=== PATIENT | female | born 1955 | race Caucasian/White ===

== ENCOUNTER 2020-10-03 09:11 | Outpatient (REF) | payer OTHER, SELFPAY ==
--- NOTE | 2020-10-03 | MM_ITS ---
EXAMINATION: MM SCREENING DIGITAL BREAST TOMOSYNTHESIS, BILATERAL CLINICAL INFORMATION: Screening. Asymptomatic. The lifetime risk of breast cancer based on the Tyrer-Cuzick Model is 4%. COMPARISON: Mammography: 09/28/2019, 05/05/2018, 03/17/2017 TECHNIQUE: Digital breast tomosynthesis is performed in both the craniocaudal and mediolateral oblique views along with computer-aided detection (CAD). Synthesized 2D images are generated from the tomosynthesis. Additional right MLO and left CC views are provided. FINDINGS: There are scattered areas of fibroglandular density (ACR BI-RADS breast composition Category b). Breast tissue composition borders on heterogeneously dense. Parenchymal pattern is similar to prior studies. There is no developing density or interval mass or architectural abnormality. No abnormal calcifications. No significant changes. MM/MM tomosynthesis screening BI IMPRESSION: No mammographic evidence of malignancy. ASSESSMENT: BI-RADS 1: Negative RECOMMENDATION: Routine annual mammography screening. This patient's information was entered into a reminder system with a target due date for their next mammogram.
== END 2020-10-03 09:12 | disposition home or self-care (01) ==
LOC: HO.MAMMO 09:11
PROVIDERS: PCP Student in an Organized Health Care Education/Training Program; Visit Provider Student in an Organized Health Care Education/Training Program
DX: Z12.31 Encounter for screening mammogram for malignant neoplasm of breast (principal)
CPT/HCPCS: 77063; 77067

== ENCOUNTER 2021-12-31 09:27 | Outpatient (REF) | payer OTHER, SELFPAY ==
--- NOTE | ~2021-12-31 | MM_ITS ---
EXAMINATION: MM SCREENING DIGITAL BREAST TOMOSYNTHESIS, BILATERAL CLINICAL INFORMATION: Screening. Asymptomatic. The lifetime risk of breast cancer based on the Tyrer-Cuzick Model is 5%. COMPARISON: Mammography: 10/03/2020, 09/28/2019, 05/05/2018. TECHNIQUE: Digital breast tomosynthesis is performed in both the craniocaudal and mediolateral oblique views along with computer-aided detection (CAD). Synthesized 2D images are generated from the tomosynthesis. FINDINGS: There are scattered areas of fibroglandular density (ACR BI-RADS breast composition Category b). There are no significant masses, abnormal calcifications, or other abnormalities. Parenchymal pattern is similar to prior studies. Breast tissue composition borders on heterogeneously dense. No developing density. Axilla and skin contours unremarkable. MM/MM tomosynthesis screening BI IMPRESSION: No mammographic evidence of malignancy. ASSESSMENT: BI-RADS 1: Negative RECOMMENDATION: Routine annual mammography screening. This patient's information was entered into a reminder system with a target due date for their next mammogram.
== END 2021-12-31 09:28 | disposition home or self-care (01) ==
LOC: HO.MAMMO 09:27
PROVIDERS: PCP Student in an Organized Health Care Education/Training Program; Visit Provider Student in an Organized Health Care Education/Training Program
DX: Z12.31 Encounter for screening mammogram for malignant neoplasm of breast (principal)
CPT/HCPCS: 77063; 77067

== ENCOUNTER 2023-01-06 09:40 | Outpatient (REF) | payer MEDICARE, SELFPAY ==
--- NOTE | ~2023-01-06 | MM_ITS ---
EXAMINATION: MM SCREENING DIGITAL BREAST TOMOSYNTHESIS, BILATERAL CLINICAL INFORMATION: Screening. Asymptomatic. The lifetime risk of breast cancer based on the Tyrer-Cuzick Model is 5%. COMPARISON: Mammography: 12/31/2021, 10/03/2020, 09/28/2019 TECHNIQUE: Digital breast tomosynthesis is performed in both the craniocaudal and mediolateral oblique views along with computer-aided detection (CAD). Synthesized 2D images are generated from the tomosynthesis. FINDINGS: There are scattered areas of fibroglandular density (ACR BI-RADS breast composition Category b). Breast tissue composition borders on heterogeneously dense. Fibronodular parenchymal pattern is similar to prior exams. There are no significant masses, abnormal calcifications, or other abnormalities. No architectural abnormality or developing density or significant change from prior studies. MM/MM tomosynthesis screening BI IMPRESSION: No mammographic evidence of malignancy. ASSESSMENT: BI-RADS 1: Negative RECOMMENDATION: Routine annual mammography screening. This patient's information was entered into a reminder system with a target due date for their next mammogram.
== END 2023-01-06 09:41 | disposition home or self-care (01) ==
LOC: HO.MAMMO 09:40
PROVIDERS: PCP Student in an Organized Health Care Education/Training Program; Visit Provider Student in an Organized Health Care Education/Training Program
DX: Z12.31 Encounter for screening mammogram for malignant neoplasm of breast (principal)
CPT/HCPCS: 77063; 77067

== ENCOUNTER → 2023-12-09 10:40 | Outpatient (BNVA) | payer MEDICARE, SELFPAY | PROVIDERS: PCP Student in an Organized Health Care Education/Training Program; Visit Provider Nurse Practitioner Family ==

== ENCOUNTER 2023-12-14 15:20 | Outpatient (REF) | payer MEDICARE, SELFPAY ==
[2023-12-14 16:17] LABS: MANUAL DIFF FLAG NO
[2023-12-14 16:35] LABS: Estimated Average Glucose 100 mg/dL; Hemoglobin A1c % 5.1 % (<6.0)
[2023-12-14 16:36] LABS: Basophils Absolute Auto 0.1 X10*3/uL (0.0-0.2); Basophils Percent Auto 0.5 % (0-2); Eosinophils Percent Auto 0.3 % (0-4); Hematocrit 39.9 % (37.0-47.0); Hemoglobin 13.5 g/dl (12.0-16.0); Imm Gran Abs Auto 0.04 X10*3/uL (0.00-0.03); Imm Gran Pct Auto 0.4 % (0.0-0.4); Lymphocytes Absolute Auto 1.8 X10*3/uL (1.2-4.9); Lymphocytes Percent Auto 19.3 % (20-40); Mean Corpuscular HGB Conc 33.8 g/dl (31.0-35.0); Mean Corpuscular Hemoglobin 33.3 pg (27.0-33.0); Mean Corpuscular Volume 98.5 fL (80.0-98.0); Mean Platelet Volume 9.6 fL (9.4-12.3); Monocytes Absolute Auto 0.7 X10*3/uL (0.1-1.2); Monocytes Percent Auto 7.7 % (2-11); Neutrophils Absolute Auto 6.6 x10*3/uL (2.0-8.3); Neutrophils Percent Auto 71.8 % (45-73); Platelet Count 255 X10*3/uL (160-400); Red Blood Count 4.05 X10*6/uL (4.20-5.50); Red Cell Distribution Width 12.6 % (11.0-16.0); White Blood Count 9.2 X10*3/uL (4.8-10.8)
[2023-12-14 16:41] LABS: INTERNATIONAL NORM RATIO 0.9 (0.9-1.1); Prothrombin Time 10.7 SEC (11.1-13.3)
[2023-12-14 16:49] LABS: Parathyroid Hormone Intact 27.2 pg/mL (8.7-77.1)
[2023-12-14 17:59] LABS: Alanine Aminotransferase 21 U/L (0-31); Albumin Level 4.7 g/dL (3.5-5.0); Alkaline Phosphatase 77 U/L (39-117); Anion Gap 16 (12-20); Aspartate Amino Transferase 34 U/L (5-31); Bilirubin Total 0.6 mg/dL (0.0-1.0); Blood Urea Nitrogen 18 mg/dL (9-16); Calcium 10.2 mg/dL (8.4-10.2); Carbon Dioxide 26 mmol/L (22-29); Chloride 103 mmol/L (96-108); Cholesterol 174 mg/dL (<200); Estimated Glomerular Filt Rate 60; Glucose Random 96 mg/dL (60-115); HDL Cholesterol 83 mg/dL (>40); Iron 88 mcg/dL (30-160); LDL Cholesterol Calculated 73 mg/dL (<100); Percent Iron Saturation 27 % (15-50); Potassium 4.3 mmol/L (3.3-5.1); Sodium 141 mmol/L (135-145); Total Iron Binding Capacity 330 mcg/dL (228-428); Total Protein 8.1 g/dL (6.5-8.0); Triglycerides 90 mg/dL (<150); Unsaturated Iron Binding 242 ug/dL
[2023-12-14 18:22] LABS: Ferritin 129 ng/mL (10-250); TSH reflex Free T4 2.71 uIU/mL (0.32-4.0); Vitamin D 25-OH Total 64.8 ng/mL (>30)
[2023-12-14 18:26] LABS: Folate > 20.0 ng/mL (> or = 4.0); Vitamin B12 > 2000 pg/mL (200-900)
[2023-12-14 18:34] LABS: Reflex LDLD? No
[2023-12-15 18:04] LABS: Thyroglobulin Antibodies <1 IU/mL (< or = 1)
== END 2023-12-14 15:21 | disposition home or self-care (01) ==
LOC: HO.HHCL 15:20
PROVIDERS: Visit Provider Family Medicine
DX: D64.9 Anemia, unspecified (principal); E03.9 Hypothyroidism, unspecified; E78.1 Pure hyperglyceridemia; I10 Essential (primary) hypertension; R74.01 Elevation of levels of liver transaminase levels; E55.9 Vitamin D deficiency, unspecified; E07.89 Other specified disorders of thyroid
CPT/HCPCS: 36415; 80053; 80061; 82306; 82607; 82728; 82746; 83036; 83540; 83970; 84443; 85025; 85610; 86800

== ENCOUNTER 2024-01-08 09:09 | Outpatient (REF) | payer MEDICARE, SELFPAY ==
--- NOTE | ~2024-01-08 | MM_ITS ---
EXAMINATION: BONE DENSITOMETRY CLINICAL INDICATION: Age-related osteoporosis without current pathological fracture. Post menopausal. COMPARISON: This is the patient's baseline examination. TECHNIQUE: Using a [employer] DXA System (software version: 13.1) manufactured by [employer], dual-energy x-ray absorptiometry was performed of the lumbar spine and left hip. The images are of good technical quality. Summary results are attached. FINDINGS: AP SPINE L1-L3 (excluding L4): The data of L1-L4 has been changed to exclude the L4 vertebral body, because degenerative sclerosis at this level may cause overestimation of lumbar spine density. BMD 1.195 g/cm2, Z-score 2.0, T-score 0.2, normal. LEFT FEMUR, NECK: BMD 0.899 g/cm2, Z-score 0.7, T-score -1.0, normal. LEFT FEMUR, TOTAL: BMD 0.906 g/cm2, Z-score 0.6, T-score -0.8, normal. IDENTIFIED RISK FACTORS: Alcohol (3 or more units per day). Height loss. Secondary osteoporosis (early menopause). HISTORY OF FRACTURE: None listed. MEDICATIONS: Calcium supplement and/or multivitamin. MM/XR DEXA axial skeleton IMPRESSION: 1. DIAGNOSIS: Normal bone density based on the lowest T-score value of -1.0 in the femoral neck applying World Health Organization criteria. 2. 10-YEAR FRACTURE RISK PREDICTION, FRAX: According to the guidelines, FRAX calculation should only be performed on patients in the osteopenia bone density category.?Therefore, FRAX was not performed on this patient.? 3. Treatment Recommendations: NOF guidelines recommend consideration for treatment in postmenopausal women and men age 50 and older presenting with the following: -A hip or vertebral (clinical or morphometric) fracture. -T-score less than or equal to -2.5 at the femoral neck or spine after appropriate evaluation to exclude secondary causes. -Low bone mass at the hip or spine and a 10-year fracture probability by FRAX of greater than or equal to 3% for hip fracture or greater than or equal to 20% for major osteoporotic fracture based on the [place] adapted WHO algorithm. 4. Other Recommendations: All treatment decisions require clinical judgment and consideration of individual patient factors, including patient preferences, comorbidities, previous drug use, risk factors not captured in the FRAX model (e.g. frailty, falls, vitamin D deficiency, increased bone turnover, interval significant decline in bone density) and possible under or overestimation of fracture risk by FRAX. FUTURE SCAN RECOMMENDATION: People with diagnosed cases of osteoporosis or at high risk for fracture should have regular bone mineral density tests. For patients eligible for Medicare, routine testing is allowed once every 2 years. The testing frequency can be increased to one year for patients who have rapidly progressing disease, those who are receiving or discontinuing medical therapy to restore bone mass, or have additional risk factors.
--- NOTE | ~2024-01-08 | MM_ITS ---
EXAMINATION: MM SCREENING DIGITAL BREAST TOMOSYNTHESIS, BILATERAL CLINICAL INFORMATION: Screening. Asymptomatic. COMPARISON: Mammography: 01/06/2023, 12/31/2021, 10/03/2020, 09/28/2019 TECHNIQUE: Digital breast tomosynthesis is performed in both the craniocaudal and mediolateral oblique views along with computer-aided detection (CAD). Synthesized 2D images are generated from the tomosynthesis. FINDINGS: The breasts are heterogeneously dense, which may obscure small masses (ACR BI-RADS breast composition Category c). Breast parenchyma is borderline category B. There are no suspicious masses, suspicious grouped calcifications, or areas of architectural distortion in either breast. The parenchymal pattern is stable from prior exams. No skin or axillary abnormalities. MM/MM tomosynthesis screening BI IMPRESSION: No mammographic evidence of malignancy. ASSESSMENT: BI-RADS BI-RADS 1 - Negative RECOMMENDATION: Routine annual mammography screening. 1 year F/U This examination should not preclude the clinical evaluation of a suspicious palpable abnormality. This patient's information was entered into a reminder system with a target due date for their next mammogram.
== END 2024-01-08 09:10 | disposition home or self-care (01) ==
LOC: HO.MAMMO 09:09
PROVIDERS: PCP Family Medicine; Visit Provider Student in an Organized Health Care Education/Training Program
DX: Z12.31 Encounter for screening mammogram for malignant neoplasm of breast (principal); Z13.820 Encounter for screening for osteoporosis; Z78.0 Asymptomatic menopausal state
CPT/HCPCS: 77063; 77067; 77080

== ENCOUNTER → 2024-01-08 09:45 | Outpatient (BNV) | payer MEDICARE, SELFPAY | PROVIDERS: PCP Family Medicine; Visit Provider Radiology Diagnostic Radiology | DX: Z12.31 Encounter for screening mammogram for malignant neoplasm of breast (principal) | CPT/HCPCS: 77063; 77067 ==

== ENCOUNTER 2024-03-01 07:53 | Day surgery (SDC) | payer MEDICARE, SELFPAY ==
--- NOTE | 2024-02-29 11:41 | HO.ANESPROP2 ---
Documented by User: Anastacia Qiu NP 02/29/24 11:44 HPI - Anesthesia Eval Consult details Narrative: 68yo F for Colonoscopy PMFSH Active Problems Active Problems: All Active Problems Transaminitis (Acute) Past Medical History Medical History Transaminitis Hypothyroidism (acquired) Hypercholesteremia HTN (hypertension) Family History Family History Father Mouth cancer Hypertension Mother Hypertension Surgical History Surgical History Hx of colonoscopy (~2017) Hx of cholecystectomy (~2016) Social History Social History Household Members: Spouse Housing: House Alcohol intake: current Alcohol intake frequency: a few times a week Alcohol type: beer Patient Tobacco Use Status: Former Tobacco user Substance Use Type: Marijuana Substance Use Frequency: Occasionally Are you DNR?: No Advance Directives: No Advance Directives Information Provided: Yes Nutrition Risks: No Nutritional Risk Meds Allergies Allergy/AdvReac Type Severity Reaction Status Date / Time celecoxib [From CELEBREX] Allergy Intermediate HIVES Verified 03/01/24 08:46 shellfish derived Allergy Intermediate HIVES Verified 03/01/24 08:46 [SHELLFISH DERIVED] Sulfa (Sulfonamide Allergy Intermediate HIVES Verified 03/01/24 08:46 Antibiotics) [SULFA (SULFONAMIDE ANTIBIOTICS)] shellfish reaction at age 16 Allergy Unknown hives Uncoded 03/01/24 08:46 Home Medications ?Medication ?Instructions ?Recorded ?Confirmed ?Last Taken ?Type atorvastatin 40 mg tablet 40 mg PO BEDTIME 12/09/23 03/01/24 Unknown History levothyroxine 25 mcg tablet 25 mcg PO QAM 12/09/23 03/01/24 03/01/24 History lisinopril 10 mg tablet 10 mg PO DAILY 12/09/23 03/01/24 Unknown History thiamine HCl (vitamin B1) 100 mg 100 mg PO DAILY 12/09/23 03/01/24 Unknown History tablet Exam Pertinent Lab Results Pertinent Lab Results: Laboratory Tests 12/14/23 15:23 WBC 9.2 Hgb 13.5 Hct 39.9 Plt Count 255 Sodium 141 Potassium 4.3 Chloride 103 Carbon Dioxide 26 BUN 18 H Creatinine 0.94 Assessment and Plan Assessment Anesthesia Assessment: Chart Reviewed Documented by User: Libra Truong MD 03/01/24 09:10 PMFSH Past Medical History Medical History Transaminitis Hypothyroidism (acquired) Hypercholesteremia HTN (hypertension) Family History Family History Father Mouth cancer Hypertension Mother Hypertension Surgical History Surgical History Hx of colonoscopy (~2016) Hx of cholecystectomy (~2015) History of Problems with Anesthesia: No Social History Social History Household Members: Spouse Housing: House Alcohol intake: current Alcohol intake frequency: a few times a week Alcohol type: beer Patient Tobacco Use Status: Former Tobacco user Substance Use Type: Marijuana Substance Use Frequency: Occasionally Are you DNR?: No Advance Directives: No Advance Directives Information Provided: Yes Nutrition Risks: No Nutritional Risk Meds Allergies Allergy/AdvReac Type Severity Reaction Status Date / Time celecoxib [From CELEBREX] Allergy Intermediate HIVES Verified 03/01/24 08:46 shellfish derived Allergy Intermediate HIVES Verified 03/01/24 08:46 [SHELLFISH DERIVED] Sulfa (Sulfonamide Allergy Intermediate HIVES Verified 03/01/24 08:46 Antibiotics) [SULFA (SULFONAMIDE ANTIBIOTICS)] shellfish reaction at age 16 Allergy Unknown hives Uncoded 03/01/24 08:46 Home Medications ?Medication ?Instructions ?Recorded ?Confirmed ?Last Taken ?Type atorvastatin 40 mg tablet 40 mg PO BEDTIME 12/09/23 03/01/24 Unknown History levothyroxine 25 mcg tablet 25 mcg PO QAM 12/09/23 03/01/24 03/01/24 History lisinopril 10 mg tablet 10 mg PO DAILY 12/09/23 03/01/24 Unknown History thiamine HCl (vitamin B1) 100 mg 100 mg PO DAILY 12/09/23 03/01/24 Unknown History tablet Exam Airway Mallampati Class: II TM Dist: >3cm Neck ROM: Full Loose/Missing/Broken Teeth: No Heart: RRR Lungs: CTA Assessment and Plan Assessment Anesthesia Assessment: Anesthesia Plan Discussed Final Anesthetic Review History of Problems with Anesthesia: No NPO: Yes ASA Class: II Final Preanesthetic Review: Meds/Allgs Chart Reviewed, Consent Obtained/Reviewed and Anes Risks/Benef Reviewed Patient Risk: Low Anesthetic Plan Anesthetic Plan: MAC: Disposition: Standard PACU
--- NOTE | 2024-03-01 08:10 | P.HPSUR_ITS ---
Pre-Procedural Eval Section A - 24 Hr Update-Section A only Date of Service: 03/01/24 Section B - Complete if H&P > 30 days Chief Complaint: Hx of polyps Details of Present Illness: Transaminitis Hypothyroidism (acquired) Hypercholesteremia HTN (hypertension) Surgical History (Updated 12/09/23 @ 11:11 by Dana Avina, [facility]) Hx of colonoscopy (~2017) Hx of cholecystectomy (~2015) Allergies: Allergies Allergy/AdvReac Type Severity Reaction Status Date / Time celecoxib [From CELEBREX] Allergy Intermediate HIVES Unverified 12/09/23 10:45 shellfish derived Allergy Intermediate HIVES Unverified 12/09/23 10:45 [SHELLFISH DERIVED] Sulfa (Sulfonamide Allergy Intermediate HIVES Unverified 12/09/23 10:45 Antibiotics) [SULFA (SULFONAMIDE ANTIBIOTICS)] shellfish reaction at age 16 Allergy Unknown hives Uncoded 12/09/23 10:45 Plan I have reviewed the history and physical and performed a pertinent physical examination on my patient. No changes have occurred unless specified. Time Spent With Patient Time: Total time managing care of this patient today ____ minutes.
[2024-03-01 08:26] VITALS: BMI 21.6
[2024-03-01] MEDS: Lactated Ringers 1,000 ML 100 ML IVCONT (08:30)
[2024-03-01 08:44] VITALS: BP 142/70; PULSE 70; RESP 18; TEMP 36.6; O2SAT 100
--- NOTE | 2024-03-01 10:00 | P.OPN-COLO_ITS ---
Colonoscopy Operative Note Operative Note Date of Service: 03/01/24 Narrative: Procedure: Colonoscopy Indication: Personal history of polyps Endoscopist: Tonia Cole MD Anesthesia Provider: Dr Nathalie Truong Anesthesia type: MAC Instrument: Olympus [id number]-[id number] Consent: Indication, risks vs benefits, and alternatives were discussed with the patient who gave written informed consent to proceed. EKG, pulse, pulse oximetry and blood pressure were monitored throughout the procedure. Please see anesthesia flowsheet. Procedure: The patient was brought to the procedure room and placed in the left lateral decubitus position. IV medications were administered by the anesthesia provider in attendance. A digital rectal exam was performed which was normal. A distal attachment cap was affixed to the tip of the colonoscope which was then inserted through the anus and advanced through the colon to the cecum at 80 cm,and terminal ileum. Appendiceal orifice and ileocecal valve were identified. Mucosa was carefully examined under high definition white light as the instrument was slowly withdrawn in a retrograde panoramic fashion. Retroflexion was performed in rectum. The procedure was not difficult. There were no immediate obvious complications. The quality of the prep was BBPS: 2+3+3 = adequate Withdrawal time 9 minutes. Limitations: No limitations. Findings: Mucosa: Normal to cecum and terminal ileum. Protruding lesions: * Medium internal hemorrhoids without stigmata of recent bleeding. Excavated lesions: * Moderate diverticulosis of left sided colon. Impression: 1. Normal colon and terminal ileum mucosa 2. Diverticulosis 3. Internal hemorrhoids Recommendations: - Repeat colonoscopy in 10 years for asymptomatic colorectal cancer screening
[2024-03-01 10:02] VITALS: BP 98/55; PULSE 71; RESP 18; TEMP 36.1; O2SAT 100
[2024-03-01 10:13] VITALS: BP 127/70; PULSE 66; RESP 16; TEMP 36.1; O2SAT 97
== END 2024-03-01 11:08 | disposition home or self-care (01) ==
PROVIDERS: PCP Family Medicine; Visit Provider Internal Medicine
PROC: 0DJD8ZZ Inspection of Lower Intestinal Tract, Via Natural or Artificial Opening Endoscopic (ICD-10-PCS; CPT 45378; principal; 2024-03-01 09:40)
DX: Z12.11 Encounter for screening for malignant neoplasm of colon (principal); K57.30 Diverticulosis of large intestine without perforation or abscess without bleeding; K64.8 Other hemorrhoids; Z86.010 Personal history of colon polyps; I10 Essential (primary) hypertension; Z88.2 Allergy status to sulfonamides; Z88.8 Allergy status to other drugs, medicaments and biological substances
CPT/HCPCS: G0105; J2704

== ENCOUNTER → 2024-03-01 07:53 | Outpatient (BNV) | payer MEDICARE, SELFPAY | PROVIDERS: PCP Family Medicine; Visit Provider Internal Medicine | DX: Z12.11 Encounter for screening for malignant neoplasm of colon (principal); Z86.010 Personal history of colon polyps; K64.8 Other hemorrhoids; K57.30 Diverticulosis of large intestine without perforation or abscess without bleeding | CPT/HCPCS: G0105 ==

== ENCOUNTER 2024-03-16 11:04 | Outpatient (AMB) | payer MEDICARE, SELFPAY ==
[2024-03-16 11:05] VITALS: BP 151/76; PULSE 70; BMI 22.2
--- NOTE | 2024-03-16 11:05 | MHC.OFFVIS ---
Vital Signs 03/16/24 11:05 Height 5 ft 2 in Weight 121 lb 4.068 oz BMI 22.2 BP 151/76 H Blood Pressure Location Lt brachial Position Sitting Pulse 70 Intake Visit Reasons: S/P [place]: Dr Cole Intake Note: Nataliya presents in the office as a follow up colonoscopy. CC: No concerns since her colonoscopy. Legal Examiner Required: No Allergies celecoxib [From CELEBREX] Allergy (Intermediate, Verified 03/16/24 11:18) HIVES shellfish derived [SHELLFISH DERIVED] Allergy (Intermediate, Verified 03/16/24 11:18) HIVES Sulfa (Sulfonamide Antibiotics) [SULFA (SULFONAMIDE ANTIBIOTICS)] Allergy (Intermediate, Verified 03/16/24 11:18) HIVES shellfish reaction at age 16 Allergy (Unknown, Uncoded 03/16/24 11:18) hives HPI HPI S/P [place]: Dr Cole: Details: TODAY'S VISIT: Screen for colon cancer Transaminitis Plan Patient denies any GI, cardiac or respiratory symptoms.? Denies any issues with anesthesia in the past.? Denies any history of sleep apnea.? No history infectious diseases in the past or present.? Not on any anticoagulation therapy.? No family history of colon cancer.? Patient denies melena, hematochezia, unintentional weight loss or ribbon like stools.? Discussed at length the pre-procedure,? prep, diet & medications as well as what to expect prior, during and after the procedure.?? Stressed the importance of good bowel prep. ?Recommended the use of Vaseline or Calmoseptine OTC & baby wipes with bowel movements to promote comfort.? ?Patient verbalizes understanding and agrees to plan of care.? She was given the opportunity to ask questions and all questions answered.? We will see her after the procedure.? Orders Orders Comprehensive Met. Panel Today K21.9 Complete Blood Count no Diff Today K21.9 Medications New bisacodyl (Dulcolax (bisacodyl)) take 4 tabs at noon the day before your colonoscopy 20 mg (4 x 5 mg) PO ONCE 1 day 4 tabs 0RF Z12.11 polyethylene glycol 3350 (Miralax) As directed by gastroenterology department at [facility] 238 grams PO ONCE 238 grams 0RF Z12.11 COLONOSCOPY: Findings: Mucosa: Normal to cecum and terminal ileum. Protruding lesions: Medium internal hemorrhoids without stigmata of recent bleeding. Excavated lesions: Moderate diverticulosis of left sided colon. Impression: 1. Normal colon and terminal ileum mucosa 2. Diverticulosis 3. Internal hemorrhoids Recommendations: - Repeat colonoscopy in 10 years for asymptomatic colorectal cancer screening TODAY'S VISIT Patient is here today for follow-up and to discuss colonoscopy results. Patient denies any ill effects from the prep, anesthesia or procedure itself. Patient states that she has been feeling well. Denies melena, hematochezia. Denies any dyspepsia, dysphagia or odynophagia. Patient denies any GI concerning symptoms. Upon review patient's labs her liver enzymes have improved Laboratory Tests 12/14/23 15:23 AST 34 H ALT 21 PFSH Medical History (Updated 03/16/24 @ 12:08 by Dana Avina [facility]) Diverticulosis Transaminitis Hypothyroidism (acquired) Hypercholesteremia HTN (hypertension) Surgical History Hx of colonoscopy (~2017) Hx of cholecystectomy (~2016) Family History Father Mouth cancer Hypertension Mother Hypertension Social History Household Members: Spouse Housing: House Alcohol intake: current Alcohol intake frequency: a few times a week Alcohol type: beer Patient Tobacco Use Status: Former Tobacco user Substance Use Type: Marijuana Physical Exam Vital Signs: Last Vital Signs Pulse 70 03/16/24 11:05 BP 151/76 H 03/16/24 11:05 BMI result Body Mass Index 22.2 Assessment & Plan Assessment & Plan (1) Transaminitis: Code(s): R74.01 - Elevation of levels of liver transaminase levels Category: Medical (2) Status post colonoscopy: Code(s): Z98.890 - Other specified postprocedural states (3) Diverticulosis: Code(s): K57.90 - Diverticulosis of intestine, part unspecified, without perforation or abscess without bleeding Category: Medical Plan Colonoscopy in 10 years, sooner if clinically necessary. Patient will get her abdominal ultrasound with elastography. Will repeat liver enzymes. Patient will return for follow-up in 6 months, sooner on as needed basis. She is agreeable to this plan and verbalizes understanding of instructions. She was given the opportunity to ask questions and all questions answered. Thank you for allowing me to participate in her care Orders: Orders US abdomen humphrey w elastography Today R74.01 - Elevation of levels of liver transaminase levels Liver Panel Today R74.01 - Elevation of levels of liver transaminase levels Coding Level of Care Code Est Pt Level 3 (40635) Diagnoses Transaminitis R74.01 Status post colonoscopy Z98.890 Diverticulosis K57.90 Time Spent (min) 25 Comment 15 minutes spent with patient and additional 10 minutes spent reviewing her records
== END 2024-03-16 11:39 | disposition home or self-care (01) ==
PROVIDERS: PCP Student in an Organized Health Care Education/Training Program; Visit Provider Nurse Practitioner Family
DX: R74.01 Elevation of levels of liver transaminase levels (principal); Z98.890 Other specified postprocedural states; K57.90 Diverticulosis of intestine, part unspecified, without perforation or abscess without bleeding
CPT/HCPCS: 99213

== ENCOUNTER → 2024-03-16 11:04 | Outpatient (BNVA) | payer MEDICARE, SELFPAY | PROVIDERS: PCP Student in an Organized Health Care Education/Training Program; Visit Provider Nurse Practitioner Family | DX: K57.90 Diverticulosis of intestine, part unspecified, without perforation or abscess without bleeding (principal); R74.01 Elevation of levels of liver transaminase levels; Z71.2 Person consulting for explanation of examination or test findings | CPT/HCPCS: 99212 ==

== ENCOUNTER 2024-06-17 09:54 | Outpatient (REF) | payer MEDICARE, SELFPAY ==
--- NOTE | ~2024-06-17 | US_ITS ---
EXAMINATION: US ABDOMEN LIMITED WITH LIVER ELASTOGRAPHY CLINICAL INFORMATION: Elevated LFTs. COMPARISON: CT abdomen and pelvis 06/28/2019, MRI abdomen 11/12/2015, abdominal ultrasound 10/22/2015 TECHNIQUE: Real-time imaging of the abdominal viscera. Noninvasive ultrasound liver fibrosis assessment is performed using Hailey ElastPQ point quantification shear wave elastography (pSWE) with a 5 MHz transducer. Multiple elastography samples are obtained. FINDINGS: PANCREAS: The visualized pancreatic head and body are normal in appearance. The remainder of the pancreas is obscured from visualization by the overlying bowel gas. LIVER: The liver demonstrates normal size and contour but with increased echogenicity. No focal lesion or intrahepatic biliary duct dilatation. The right lobe measures 12.3 cm in length. The left lobe measures 9.6 cm in length. Shear wave elastography provides a median stiffness of 1.5 m/s (reference: normal median stiffness is 0.81 - 1.22 m/s). The IQR/median stiffness to assess sampling precision is 0.11 (reference: optimal IQR/median stiffness is under 0.3). GALLBLADDER: Status post cholecystectomy. COMMON BILE DUCT: Common bile duct is dilated measuring 9 mm in diameter, which can be normal after cholecystectomy. RIGHT KIDNEY: . No hydronephrosis. No renal calculi or focal parenchymal lesions. The kidney measures 8.9 cm in maximum dimension. FREE FLUID: None. US/US abdomen humphrey w elastography IMPRESSION: 1. The liver is normal in size with increased echogenicity. Common bile duct dilated at 0.9 cm. 2. Liver elastography: In the absence of other known clinical signs, measurements rule out compensated advanced chronic liver disease. If there are known clinical signs, further testing may be needed for confirmation. REFERENCE: Society of Radiologists in Ultrasound Liver Stiffness Thresholds (2020): LIVER STIFFNESS THRESHOLDS: *Liver Stiffness equal or less than 1.3 m/s: High probability of being normal. *Liver Stiffness less than 1.7 m/s: In the absence of other known clinical signs, rules out compensated advanced chronic liver disease. *Liver Stiffness 1.7-2.1 m/s: Suggestive of compensated advanced chronic liver disease but need further test for confirmation. *Liver Stiffness over 2.1 m/s: Rules in compensated advanced chronic liver disease. *Liver Stiffness over 2.4 m/s: Suggestive of clinically significant portal hypertension. QUALITY OF DATA SET: *IQR/Median value equal or less than 0.15 implies a quality data set. *IQR/Median value over 0.15 implies a poor quality data set. SIGNIFICANT CHANGE FROM PRIOR EXAM: Significant change if liver stiffness measurement is 10% or greater from prior exam. OTHER CONSIDERATIONS: The stage of liver fibrosis may be overestimated in the setting of acute hepatitis, liver inflammation, elevated liver function tests, hepatic vascular congestion, obstructive cholestasis, non-fasting state, and infiltrative diseases such as amyloidosis and lymphoma. In some patients with NAFLD, the liver stiffness thresholds for compensated advanced chronic liver disease may be lower. In causes other than viral hepatitis and NAFLD, liver stiffness thresholds are not well established. Electronically signed by: Isaac Bonner MD 06/20/2024 09:54 PM EDT
== END 2024-06-17 09:55 | disposition home or self-care (01) ==
LOC: HO.US 09:54
PROVIDERS: Visit Provider Nurse Practitioner Family
DX: R74.01 Elevation of levels of liver transaminase levels (principal)
CPT/HCPCS: 76705; 76981

== ENCOUNTER 2024-09-12 10:58 | Outpatient (AMB) | payer MEDICARE, SELFPAY ==
--- NOTE | 2024-09-12 11:01 | MHC.OFFVIS ---
Vital Signs 09/12/24 11:03 Height 5 ft 2 in Weight 123 lb 7.342 oz BMI 22.6 BP 134/72 Blood Pressure Location Rt brachial Position Sitting Pulse 76 Pulse Source Pulse Oximeter Pulse Oximetry (%) 98 Oxygen Delivery Method Room Air Intake Visit Reasons: 6 month follow up Intake Note: Relevant Flags or Indicators ? Requires Sail Repair Person? Altagracia An presents in office today for a scheduled 6 mos FUV. CC; Pt had imaging done since last visit. No meds ordered. Pt has active, outstanding labs. ? Relevant GI Sx as reported per pt? None ? Hx of any recent surgeries? None Sail Repair Person Required: No Allergies celecoxib [From CELEBREX] Allergy (Intermediate, Verified 09/12/24 11:03) HIVES shellfish derived [SHELLFISH DERIVED] Allergy (Intermediate, Verified 09/12/24 11:03) HIVES Sulfa (Sulfonamide Antibiotics) [SULFA (SULFONAMIDE ANTIBIOTICS)] Allergy (Intermediate, Verified 09/12/24 11:03) HIVES shellfish reaction at age 16 Allergy (Unknown, Uncoded 03/16/24 11:18) hives HPI HPI 6 month follow up: Details: LAST VISIT: Transaminitis Status post colonoscopy Diverticulosis Plan Colonoscopy in 10 years, sooner if clinically necessary. Patient will get her abdominal ultrasound with elastography. Will repeat liver enzymes. Patient will return for follow-up in 6 months, sooner on as needed basis. She is agreeable to this plan and verbalizes understanding of instructions. She was given the opportunity to ask questions and all questions answered. ? Thank you for allowing me to participate in her care Orders Orders US abdomen humphrey w elastography Today R74.01 Liver Panel Today R74.01 TODAY'S VISIT Patient is here today for follow-up and to discuss lab and ultrasound results. Patient did not had blood work done, ultrasound liver elastography showed increased echogenicity with shear way elastography measurement 1.5, slightly above normal and rules out compensated advanced chronic liver disease. Patient reports that she drinks alcohol only occasionally usually beer. No hard liquor. Patient was given prescription for Tylenol, however she is not taking it on a regular basis. Patient reports that she has been doing well, denies any GI concerning symptoms. [facility] Medical History Diverticulosis Transaminitis Hypothyroidism (acquired) Hypercholesteremia HTN (hypertension) Surgical History Hx of colonoscopy (~2017) Hx of cholecystectomy (~2015) Family History Father Mouth cancer Hypertension Mother Hypertension Social History Household Members: Spouse Housing: House Alcohol intake: current Alcohol intake frequency: a few times a week Alcohol type: beer Patient Tobacco Use Status: Former Tobacco user Substance Use Type: Marijuana Review of Systems Const Denies weight gain and Denies weight loss ENT Reports no additional complaints, Denies dysphagia and Denies odynophagia Card Reports no additional complaints Resp Reports no additional complaints GI Denies abdominal pain, Denies belching, Denies melena, Denies bloating, Denies change in bowel habits, Denies dysphagia, Denies excessive flatus, Denies dyspepsia, Denies heartburn, Denies diarrhea, Denies loose stools, Denies nausea, Denies odynophagia and Denies vomiting Musc Reports no additional complaints Neuro Reports no additional complaints Psych Reports no additional complaints Endo Reports no additional complaints Physical Exam Const General: healthy appearing, no acute distress and well developed Nutritional Appearance: well nourished Orientation/consciousness: patient oriented x3 Resp Effort & Inspection: normal respiratory effort, able to speak in complete sentences, no tracheal deviation and symmetric chest movement Auscultation: clear to auscultation bilaterally Cardio Rate: regular rate GI Inspection: Yes normal to inspection and No distended Palpation (GI): Soft to palpation, not firm, nontender and No hepatosplenomegaly present Auscultation: normal bowel sounds General: Yes no CVA tenderness Back/Spine/Pelvis Back: no CVA tenderness Skin General skin exam: elasticity normal, turgor normal and dry skin Neuro General: patient oriented x3 Psych Appearance: grossly normal Mental Status: mental status grossly normal Results Reviewed Results Reviewed: ABDOMINAL ULTRASOUND WITH LIVER ELASTOGRAPHY FINDINGS: PANCREAS: The visualized pancreatic head and body are normal in appearance. The remainder of the pancreas is obscured from visualization by the overlying bowel gas. LIVER: The liver demonstrates normal size and contour but with increased echogenicity. No focal lesion or intrahepatic biliary duct dilatation. The right lobe measures 12.3 cm in length. The left lobe measures 9.6 cm in length. Shear wave elastography provides a median stiffness of 1.5 m/s (reference: normal median stiffness is 0.81 - 1.22 m/s). The IQR/median stiffness to assess sampling precision is 0.11 (reference: optimal IQR/median stiffness is under 0.3). GALLBLADDER: Status post cholecystectomy. COMMON BILE DUCT: Common bile duct is dilated measuring 9 mm in diameter, which can be normal after cholecystectomy. RIGHT KIDNEY: . No hydronephrosis. No renal calculi or focal parenchymal lesions. The kidney measures 8.9 cm in maximum dimension. FREE FLUID: None. US/US abdomen humphrey w elastography IMPRESSION: 1. The liver is normal in size with increased echogenicity. Common bile duct dilated at 0.9 cm. 2. Liver elastography: In the absence of other known clinical signs, measurements rule out compensated advanced chronic liver disease. If there are known clinical signs, further testing may be needed for confirmation. Assessment & Plan Assessment & Plan (1) Diverticulosis: Code(s): K57.90 - Diverticulosis of intestine, part unspecified, without perforation or abscess without bleeding Category: Medical (2) Transaminitis: Code(s): R74.01 - Elevation of levels of liver transaminase levels Category: Medical (3) Non-alcoholic fatty liver disease: Code(s): K76.0 - Fatty (change of) liver, not elsewhere classified Plan Patient was encouraged to get her blood work done today. Ultrasound results discussed with patient. Patient will continue low-fat, low-salt low carb and high-protein diet. Will call our office if she will have any GI symptoms. Patient is agreeable to this plan and verbalizes understanding of instructions. She was given the opportunity to ask questions and all questions answered. Thank you for allowing me to participate in her care Coding Level of Care Code Est Pt Level 3 (98179) Diagnoses Diverticulosis K57.90 Transaminitis R74.01 Non-alcoholic fatty liver disease K76.0 Time Spent (min) 25 Comment 15 minutes spent with patient and additional 10 minutes spent reviewing her records
[2024-09-12 11:03] VITALS: BP 134/72; PULSE 76; O2SAT 98; BMI 22.6
== END 2024-09-12 11:19 | disposition home or self-care (01) ==
PROVIDERS: PCP Student in an Organized Health Care Education/Training Program; Visit Provider Nurse Practitioner Family
DX: K57.90 Diverticulosis of intestine, part unspecified, without perforation or abscess without bleeding (principal); R74.01 Elevation of levels of liver transaminase levels; K76.0 Fatty (change of) liver, not elsewhere classified
CPT/HCPCS: 99213

== ENCOUNTER → 2024-09-12 10:58 | Outpatient (BNVA) | payer MEDICARE, SELFPAY | PROVIDERS: PCP Student in an Organized Health Care Education/Training Program; Visit Provider Nurse Practitioner Family | DX: K57.90 Diverticulosis of intestine, part unspecified, without perforation or abscess without bleeding (principal); K76.0 Fatty (change of) liver, not elsewhere classified; R74.01 Elevation of levels of liver transaminase levels | CPT/HCPCS: 99212 ==

== ENCOUNTER 2024-12-19 14:02 | Outpatient (REF) | payer MEDICARE, SELFPAY ==
[2024-12-19 16:19] LABS: MANUAL DIFF FLAG NO
[2024-12-19 16:31] LABS: Basophils Percent Auto 0.5 % (0-2); Eosinophils Percent Auto 0.4 % (0-4); Hematocrit 38.4 % (37.0-47.0); Imm Gran Abs Auto 0.03 X10*3/uL (0.00-0.03); Imm Gran Pct Auto 0.4 % (0.0-0.4); Lymphocytes Absolute Auto 1.6 X10*3/uL (1.2-4.9); Lymphocytes Percent Auto 19.7 % (20-40); Mean Corpuscular HGB Conc 33.9 g/dl (31.0-35.0); Mean Corpuscular Hemoglobin 33.5 pg (27.0-33.0); Mean Platelet Volume 9.7 fL (9.4-12.3); Monocytes Absolute Auto 0.7 X10*3/uL (0.1-1.2); Monocytes Percent Auto 8.2 % (2-11); Neutrophils Absolute Auto 5.8 x10*3/uL (2.0-8.3); Neutrophils Percent Auto 70.8 % (45-73); Platelet Count 229 X10*3/uL (160-400); Red Blood Count 3.88 X10*6/uL (4.20-5.50); Red Cell Distribution Width 12.4 % (11.0-16.0); White Blood Count 8.2 X10*3/uL (4.8-10.8)
[2024-12-19 16:36] LABS: Estimated Average Glucose 105 mg/dL; Hemoglobin A1C 118.6896 umol/L; Hemoglobin A1c % 5.3 % (<6.0); Total Hemoglobin (HGBA1C) 3404.9939 umol/L
[2024-12-19 16:39] LABS: Alanine Aminotransferase 30 U/L (0-31); Albumin Level 4.4 g/dL (3.5-5.0); Alkaline Phosphatase 85 U/L (39-117); Anion Gap 12 (12-20); Aspartate Amino Transferase 48 U/L (5-31); Bilirubin Direct 0.2 mg/dL (0.0-0.5); Bilirubin Total 0.6 mg/dL (0.0-1.0); Blood Urea Nitrogen 12 mg/dL (9-16); Calcium 9.6 mg/dL (8.4-10.2); Carbon Dioxide 27 mmol/L (22-29); Chloride 107 mmol/L (96-108); Estimated Glomerular Filt Rate > 60; Glucose Random 104 mg/dL (60-115); Lipase 24 U/L (8-78); Potassium 4.1 mmol/L (3.3-5.1); Sodium 142 mmol/L (135-145); Total Protein 7.8 g/dL (6.5-8.0)
[2024-12-19 16:44] LABS: Cholesterol 157 mg/dL (<200); HDL Cholesterol 87 mg/dL (>40); LDL Cholesterol Calculated 57 mg/dL (<100); Triglycerides 69 mg/dL (<150)
--- OUTSIDE RECORDS SUMMARY | 2024-12-19 16:44 | XMS_ITS | Encounter Summary ---
Author Organization [employer] Address [address] [facility] [address] [place] [address] Care Team Providers Care Crew Team Member Name Role Phone Paulina Briggs MD Primary Care Provider [phone] Encounter Details Date Type Department Care Team (Latest Contact Info) Description 12/12/2024 Travel Social History Tobacco Use Types Packs/Day Years Used Date Smoking Tobacco: Former Cigarettes Depression Answer Date Recorded Patient Health Questionnaire-9 Score 0 12/14/2023 Patient Health Questionnaire-9 Score 0 12/14/2023 Last PHQ-9: Questionnaire Data Not on file 0 12/14/2023 Housing Stability Answer Date Recorded What is your housing situation today? I have yenifer metzger 12/03/[address] you li ve. Do you have problems with any of the following? None of the above 12/03/2023 Food Insecurity Answer Date Recorded Within the past 12 months, y ou worried that your food would run out before you got money to buy more: Never True 12/03/2023 Within the past 12 months,th e food you bought just didn't last and you didn't have enough money to get more: Never True Transportation Answer Date Recorded In the past 12 months, has l ack of transportation kept you from medical appts, meetings, work or from getting things needed for daily living? No 12/03/2023 Utilities Answer Date Recorded In the past 12 months, has t he electric, gas, oil or water company threatened to shut off services in your home? No 12/03/2023 Depression Answer Date Recorded Patient Health Questionnaire-2 Score 0 12/14/2023 Comments Unknown Sex and Gender Information Value Date Recorded Sex Assigned at Female 08/18/2022 10:27 AM EDT Legal Sex Female 10:27 AM EDT Gender Identity Choose not to disclose 10:27 AM EDT Sexual Orientation Choose not to disclose 2021 10:27 AM EDT documented as of this encounter Plan of Treatment Upcoming Encounters Date Type Department Care Team (Late st Contact Info) Description 01/09/2025 11:30 AM EDT Clinical Support [facility] [address] [place] [address] documented as of this encounter Visit Diagnoses Not on filedocumented in this encounter Additional Health Concerns Assessment Noted Time PHQ-9 Depression Total Score: 0 12/14/19 3:26 PM EST documented as of this encounter Care Teams Crew Team Member Relationship Specialty Start Date End Date Paulina Briggs MD [address] [place] [address] PCP - General Family Medicine 12/28/23 documented as of this encounter
--- OUTSIDE RECORDS SUMMARY | 2024-12-19 16:44 | XMS_ITS | Encounter Summary ---
Author Organization [employer] Address [address] [facility] [address] [place] [address] Care Team Providers Care Labor Economist Name Role Phone Paulina Briggs MD Primary Care Provider [phone] Reason for Visit * Reason Onset Date Comments chart prep 12/14/2024 Encounter Details Date Type Department Care Team ([facility] st Contact Info) Description 12/14/[address] [facility] [address] [place] [address] Sloane Pérez MA chart prep Social History Tobacco Use Types Packs/Day Years [...] AM EDT documented as of this encounter Miscellaneous Notes * Telephone Encounter - Sloane Pérez MA - 12/14/2024 10:09 AM EST ..chart Prep Labs: not applicable Images: not applicable Vaccines due: Covid Due and Flu Due Referrals: Completed Screenings: Not Applicable Overdue care gaps: Sbirt, SDOH, PHQ-9, and hasmukh-7 documented in this encounter Plan of Treatment Upcoming Encounters Date Type Department Care Team (Late st Contact Info) Description 01/09/2025 11:30 AM EDT Clinical [address] [facility] [address] [place] [address] documented as of this encounter Visit Diagnoses Not on filedocumented in this encounter Additional Health Concerns Assessment Noted Time PHQ-9 Depression Total Score: 0 12/14/19 24 3:26 PM EST documented as of this encounter Care Teams Labor Economist Relationship Specialty Start Date End Date Paulina Briggs MD [address] [place] [address] PCP - General Family Medicine 12/28/23 documented as of this encounter
--- OUTSIDE RECORDS SUMMARY | 2024-12-19 16:44 | XMS_ITS | Clinical Summary ---
Author Organization [email or web address] Address [address] [place] [address] 7[address] [place] [address] Care Team Providers Care Software Security Consultant Name Role Phone Paulina Briggs MD Primary Care Provider [phone] Allergies Active Allergy Reactions Criticality Noted Date Comments Celecoxib Hives Medium 10/29/2022 Sulfa Antibiotics Hives High 10/29/2022 Medications acetaminophen (Arthritis Pain Relief) 650 MG ER tablet TAKE ONE TABLET EVERY 8 HOURS NEEDED .swallow WHOLE with WATER. DO NOT BREAK, CRUSH, DISSOLVE OR CHEW 90 tablet 5 4 Active thiamine (Vitamin B-1) 100 MG tablet TAKE 1 TABLET BY MOUTH EVERY DAY 90 tablet 1 4 Active levothyroxine (Synthroid, Levoxyl) 25 MCG tabletIndication s:Hypothyroidism , unspecified type TAKE 1 TABLET BY MOUTH EVERY MORNING 90 tablet 1 4 Active atorvastatin (Lipitor) 40 MG tablet TAKE 1 TABLET BY MOUTH EVERY DAY AT BEDTIME 90 tablet 1 4 Active lisinopril 10 MG tablet TAKE ONE TABLET DAILY 90 tablet 1 4 Active Active Problems Problem Noted Date Diagnosed Date Transaminitis 12/14/2023 Assessment & Plan (12/19/2024 1:52 PM EST): - recheck lab - patient rinks 2-3 cans of beer daily; continue reassessing amount and encourage sensible intake - consider US evaluation Assessment & Plan (12/28/2023 9:55 AM EDT): - recheck lab - patient rinks 2-3 cans of beer daily; continue reassessing amount and encourage sensible intake - consider US evaluation Hypothyroidism 04/05/2015 Assessment & Plan (12/19/2024 1:51 PM EST): - current replacement: levothyroxine 50 mcg daily - last TSH > 1 year ago - check lab - check thyroid peroxidase antibody Assessment & Plan (12/28/2023 9:49 AM EDT): - current replacement: levothyroxine 50 mcg daily - last TSH > 1 year ago - check lab - check thyroid peroxidase antibody Pure hyperglyceridemia 04/05/2015 Assessment & Plan (12/19/2024 1:51 PM EST): - current medication: atorvastatin 40 mg at bedtime - last lipid profile > 1 year ago - recheck lab - continue working on lifestyle modifications Assessment & Plan (12/28/2023 9:53 AM EDT): - current medication: atorvastatin 40 mg at bedtime - last lipid profile > 1 year ago - recheck lab - continue working on lifestyle modifications Vitamin D deficiency 04/05/2015 Assessment & Plan (12/19/2024 1:51 PM EST): - check vitamin D level Assessment & Plan (12/28/2023 9:50 AM EDT): - check vitamin D level Essential hypertension 04/05/2015 Assessment & Plan (12/19/2024 1:51 PM EST): -Goal BP < 150/90 per JNC-8 and < 130/80 per ACC/AHA guideline (Treatment threshold >= 140/90) -BP within acceptable range today -Continue working on lifestyle modifications -Recommended self-monitoring BP. -Continue current medications: lisinopril 10 mg daily -Follow up in 3-6 mo, sooner if any problem arises Assessment & Plan (12/28/2023 9:48 AM EDT): -Goal BP < 150/90 per JNC-8 and < 130/80 per ACC/AHA guideline (Treatment threshold >= 140/90) -BP within acceptable range today -Continue working on lifestyle modifications -Recommended self-monitoring BP. -Continue current medications: lisinopril 10 mg daily -Follow up in 3-6 mo, sooner if any problem arises Resolved Problems Problem Noted Date Diagnosed Date Resolved Date COVID 10/29/2022 12/14/2023 Assessment & Plan (10/29/2022 4:24 PM EST): Symptoms started 2 days ago, tested positive for covid yesterday, denied shortness of breath. Offered Paxlovid Risk vs benefits were discussed, told to maintain well hydrated, in Case of worsening symptoms told to visit er. Congestion of nasal sinus 10/29/2022 Chills 10/29/2022 11/26/2022 Encounters Date Type Department Care Team Description 12/19/2024 1:15 PM EST Office Visit [address] [address] Paulina Briggs MD Essential hypertension (Primary Dx); Vitamin D deficiency; Hypothyroidism, unspecified type; Transaminitis; Pure hyperglyceridemia; Encounter for immunization; Flatulence; Diarrhea, unspecified type; Screening for diabetes mellitus 12/19/2024 Orders Only GENERIC EXTERNAL DATA DEPARTMENT Provider, Generic External Data 12/19/2024 Travel 12/14/[address] [address] Sloane Pérez MA chart prep 12/12/2024 Travel 12/06/2024 Patient Outreach [address] [address] Paulina Briggs MD Pre-visit Planning (Pre-visit planning - LVM ) from Last 3 Months Immunizations Name Administration Dates Next Due Influenza injectable quadriv alent IIV4 with preservative 08/26/2016,07/06/2015 Influenza injectable quadrivalent preservative f ree 12/14/2023,07/08/2019 Pfizer Covid-19 Vaccine 12+ 12/19/2024, Pneumococcal Conjugate PCV 20 12/14/2023 Tdap 02/08/2018 Social History Tobacco Use Types Packs/Day Years Used Date Smoking Tobacco: Former Cigarettes Passive Smoke Exposure: Never Tobacco Cessation:Counseling Given: Not Answered Depression Answer Date Recorded Patient Health Questionnaire-9 Score 0 12/19/2024 Patient Health Questionnaire-9 Score 0 12/19/2024 Last PHQ-9: Questionnaire Data Not on file 0 12/19/2024 Housing Stability Answer Date Recorded What is your housing situation today? I have yenifer metzger 12/19/[address] you li ve. Do you have problems with any of the following? None of the above 12/19/2024 Food Insecurity Answer Date Recorded Within the past 12 months, y ou worried that your food would run out before you got money to buy more: Never True 12/19/2024 Within the past 12 months,th e food you bought just didn't last and you didn't have enough money to get more: Never True 12/2024 Transportation Answer Date Recorded In the past 12 months, has l ack of transportation kept you from medical appts, meetings, work or from getting things needed for daily living? No 12/19/2024 Utilities Answer Date Recorded In the past 12 months, has t he electric, gas, oil or water company threatened to shut off services in your home? No 12/19/2024 Depression Answer Date Recorded Patient Health Questionnaire-2 Score 0 12/19/2024 Internet Access Answer Date Recorded Internet Access Q1 Yes 12/19/2024 Internet Access Q2 Not on file 12/19/2024 Comments Unknown Sex and Gender Information Value Date Recorded Sex Assigned at Female 08/18/2022 10:27 AM EDT Legal Sex Female 10:27 AM EDT Gender Identity Choose not to disclose 10:27 AM EDT Sexual Orientation Choose not to disclose 2021 10:27 AM EDT Last Filed Vital Signs Vital Sign Reading Time Taken Comments Blood Pressure 155/84 12/19/2024 1:35 PM EST Pulse 84 12/19/2024 1:15 PM EST Temperature 36.4 ??C (97.5 ??F) 12/19/2024 1:15 PM ES T Respiratory Rate 15 12/19/2024 1:15 PM EST Oxygen Saturation 98% 12/19/2024 1:15 PM EST Inhaled Oxygen Concentration - - Weight 58.1 kg (128 lb) 12/19/2024 1:15 PM EST Height 156.3 cm (5' 1.53 ) 12/19/2024 1:15 PM ES T Body Mass Index 23.77 12/19/2024 1:15 PM EST Plan of Treatment Upcoming Encounters Date Type Department Care Team (Late st Contact Info) Description 01/09/2025 11:30 AM EDT Clinical Support [address] [address] Health Maintenance Due Date Last Done Comments CT Colonography 1955 FIT DNA/Cologuard 1955 FIT 1955 FOBT 1955 Sigmoidoscopy 1955 Hepatitis C Screening 1975 Zoster Vaccines (1 of 2) 2007 Influenza Vaccine (#1) 2024 , 07/08/2019, 08/26/2016, Additional history exists Mammogram 01/07/2025 01/08/2024, 12/18, 12/31/2021, Additional history exists Tobacco Screening 02/03/2025 02/04/2024 Alcohol/Substance Use Screening 12/19/2025 12/19/2024 Depression Screening 12/19/2025 12/19/2024, 12/20/19 25 SDOH Screening 12/19/2025 12/19/2024 DTaP/Tdap/Td Vaccines (2 - Td or Tdap) 02/09/2028 02/08/2018 Lipid Panel 12/14/2028 12/14/2023, 11/19, 12/03/2021 RSV Patients and Patients Aged 60 years or older (1 - 1-dose 75+ series) 2032 Colonoscopy 03/01/2034 03/01/2024, 10/08/2017 Colorectal Cancer Screening 03/01/2034 Cervical Cancer Screening Discontinued HPV/Cotest Discontinued 12/09/2016 Pneumococcal Vaccine: 50+ Years Completed 12/14/2023 COVID-19 Vaccine Completed 12/19/2024, 03/2023, 08/06/2022, Additional history exists HIB Vaccines Aged Out No longer eligi ble based on patient's age to complete this topic HPV Vaccines Aged Out No longer eligi ble based on patient's age to complete this topic Hepatitis A Vaccines Aged Out No long er eligible based on patient's age to complete this topic Hepatitis B Vaccines Aged Out No long er eligible based on patient's age to complete this topic IPV Vaccines Aged Out No longer eligi ble based on patient's age to complete this topic Meningococcal Vaccine Aged Out No aide bina eligible based on patient's age to complete this topic Pap Smear Discontinued RSV under 20 months Aged Out No longe r eligible based on patient's age to complete this topic Rotavirus Vaccines Aged Out No longer eligible based on patient's age to complete this topic Procedures Procedure Name Priority Date/Time Associated Diagnosis Comments HEPATIC FUNCTION PANEL Routine 12/19/2024 2:06 PM EST CBC WITH AUTO DIFFERENTIAL Routine 12/19/2024 2:06 PM EST Transaminitis LIPASE Routine 12/19/2024 2:06 PM EST Transaminitis COMPREHENSIVE METABOLIC PANEL Routine 12/19/2024 2:06 PM EST Essential hypertension HEMOGLOBIN A1C Routine 12/19/2024 2:06 PM EST Screening for diabetes mellitus HM COLONOSCOPY Routine 03/01/2024 9:07 AM EDT BI MAMMOGRAM SCREENING TOMOSYNTHESIS BILATERAL Routine 01/08/2024 9:30 AM EDT LIPID PANEL WITH REFLEX TO DIRECT LDL Routine 12/14/2023 3:23 PM EST Pure hyperglyceridemia ZZZ HISTORICAL HPV MRNA E6/E7 Routine 12/09/2016 10:00 AM EST from Last 3 Months or Most Recently Relevant to Health Maintenance Results * (ABNORMAL) CBC auto differential (12/19/2024 2:06 PM EST) White Blood Count 8.2 4.8 - 10.8 X10*3/uL [facility] Red Blood Count 3.88(L) 4.20 - 5.50 X10*6/uL [facility] Hemoglobin 13.0 12.0 - 16.0 g/dl [facility] Hematocrit 38.4 37.0 - 47.0 % [facility] Mean Corpuscular Volume 99.0(H) 80.0 - 98.0 fL [facility] Mean Corpuscular Hemoglobin 33.5(H) 27.0 - 33.0 pg [facility] Mean Corpuscular HGB Conc 33.9 31.0 - 35.0 g/dl [facility] Red Cell Distribution Width 12.4 11.0 - 16.0 % [facility] Platelet Count 229 160 - 400 X10*3/uL [facility] Mean Platelet Volume 9.7 9.4 - 12.3 fL [facility] Neutrophils Percent Auto 70.8 45 - 73 % [facility] Imm Gran Pct Auto 0.4 0.0 - 0.4 % [facility] Lymphocytes Percent Auto 19.7(L) 20 - 40 % [facility] Monocytes Percent Auto 8.2 2 - 11 % [facility] Eosinophils Percent Auto 0.4 0 - 4 % [facility] Basophils Percent Auto 0.5 0 - 2 % [facility] NRBC Pct Auto 0.0 0.0 - 0.2 /100WBC [facility] Neutrophils Absolute Auto 5.8 2.0 - 8.3 x10*3/uL [facility] Imm Gran Abs Auto 0.03 0.00 - 0.03 X10*3/uL [facility] Lymphocytes Absolute Auto 1.6 1.2 - 4.9 X10*3/uL [facility] Monocytes Absolute Auto 0.7 0.1 - 1.2 X10*3/uL [facility] Eosinophils Absolute Auto 0.0 0.0 - 0.4 X10*3/uL [facility] Basophils Absolute Auto 0.0 0.0 - 0.2 X10*3/uL [facility] NRBC Abs Auto 0.000 0.0 - 0.012 X10*3/uL [facility] Blood Venous blood specimen / Unknown 12/19/2024 2:06 PM EST 12/19/2024 4:15 PM EST us Paulina Briggs MD LAB BLOOD ORDERABLES Final Resul t Performing Organization Address City/[facility]/ZIP Co de Phone Number [facility] [address] [place] [phone] * Lipase (12/19/2024 2:06 PM EST) Lipase 24 8 - 78 U/L [facility] Blood Venous blood specimen / Unknown 12/19/2024 2:06 PM EST 12/19/2024 4:15 PM EST us Paulina Briggs MD LAB BLOOD ORDERABLES Final Resul t Performing Organization Address [facility] Co de Phone Number [facility] [address] [place] [phone] * Hemoglobin A1c (12/19/2024 2:06 PM EST) Hemoglobin A1c 5.3 <6.0 % [facility] Comment:Hemoglobin A1C Refer ence Range Adults: 4.8 - 6.0 % Non diabetic: < 6.0 % Goal: < 7.0 %Additional Action Suggested: > 8.0 %Note: Hemoglobin A1c results are invalid for patients with abnormal amounts of HbF. Blood transfusions may impact the HbA1c concentration in the patient sample. Estimated Average Glucose 105 mg/dL [facility] Comment:eAG = Estimated ave rage glucose which is %A1C expressed asaverage glucose, using the formula of the Y3W-LnsnrowIcewwgm Glucose study (ADAG), Diabetes Care, Vol.31,#8,May. 2007 Blood Venous blood specimen / Unknown 12/19/2024 2:06 PM EST 12/19/2024 4:15 PM EST us Paulina Briggs MD LAB BLOOD ORDERABLES Final Resul t Performing Organization Address City/[facility] Co de Phone Number [facility] [address] [place] [address] [phone] * Hepatic Function Panel (12/19/2024 2:06 PM EST) Bilirubin, Direct 0.2 0.0 - 0.5 mg/dL [facility] 12/19/2024 2:06 PM EST 12/19/2024 4:15 PM EST us Generic External Data Provider LAB BLOOD ORDERAB LES Final Result [facility] [address] [place] [phone] [phone] * (ABNORMAL) Comprehensive Metabolic Panel (12/19/2024 2:06 PM EST) Pathologist [facility] Sodium 142 135 - 145 mmol/L [facility] Potassium 4.1 3.3 - 5.1 mmol/L [facility] Chloride 107 96 - 108 mmol/L [facility] Carbon Dioxide 27 22 - 29 mmol/L [facility] Anion Gap 12 12 - 20 [facility] Urea Nitrogen (BUN) 12 9 - 16 mg/dL [facility] Creatinine, Serum 0.82 0.5 - 1.4 mg/dL [facility] Estimated Glomerular Filt Rate >60 [facility] Comment:Chronic Kidney Disea se: Estimated GFR < 60 mL/min/1.79u6Obkwyd Kidney Disease: Estimated GFR < 15 mL/min/1.73m2 Glucose 104 60 - 115 mg/dL [facility] Calcium 9.6 8.4 - 10.2 mg/dL [facility] Bilirubin, Total 0.6 0.0 - 1.0 mg/dL [facility] Aspartate Amino Transferase 48(H) 5 - 31 U/L [facility] Alanine Aminotransferase 30 0 - 31 U/L [facility] Total Protein 7.8 6.5 - 8.0 g/dL [facility] Albumin Level 4.4 3.5 - 5.0 g/dL [facility] Alkaline Phosphatase 85 39 - 117 U/L [facility] Blood Venous blood specimen / Unknown 12/19/2024 2:06 PM EST 12/19/2024 4:15 PM EST Paulina Briggs MD LAB BLOOD ORDERABLES Final Resul t [facility] [address] [place] [phone] * Hm Colonoscopy (03/01/2024 9:07 AM EDT) us Historical Provider HEALTH MAINTENANCE Final Result * BI Mammogram Screening Tomosynthesis Bilateral (01/08/2024 9:30 AM EDT) Anatomical Region Laterality Modality Breast Bilateral Mammography 01/08/2024 9:30 AM EDT Narrative 01/26/2024 10:34 AM EDT ? [facility] [place] ? [address] ?[place] [address] ? Mammography Report ? Signed ? Patient: Nataliya Timmons ?MR#: [id number] ?? [id number] ? : 1955 ?Acct:[id number] ? Age/Sex: 68 / F ?ADM Date: //24 ? Loc: HO.MAMMO ? Attending Dr: Cintia Chambers MD ? Ordering Physician: Cintia Chambers MD ?Results: 1Negati ?? ve ? Date of Service: 01/08/24 ?Follow Up: 1 Year From Orig ?? inal Mammogram ? Procedure(s): MM tomosynthesis screening BI ?? Accession Number(s): [id number] ? cc: Cintia Chambers MD; Paulina Briggs MD ? EXAMINATION: ?? MM SCREENING DIGITAL BREAST TOMOSYNTHESIS, BILATERAL ? CLINICAL INFORMATION: ? Screening. Asymptomatic. ? COMPARISON: ?? Mammography: 01/06/2023, 12/31/2021, 10/03/2020, 09/28/2019 ? TECHNIQUE: ?? Digital breast tomosynthesis is performed in both the craniocaudal and ?? mediolateral oblique views along with computer-aided detection (CAD). ?? Synthesized 2D images are generated from the tomosynthesis. ? FINDINGS: ?? The breasts are heterogeneously dense, which may obscure small masses ?? (ACR BI-RADS breast composition Category c). ? Breast parenchyma is borderline category B. ??There are no suspicious ?? masses, suspicious grouped calcifications, or areas of architectural ?? distortion in either breast. The parenchymal pattern is stable from ?? prior exams. No skin or axillary abnormalities. ? MM/MM tomosynthesis screening BI ?? IMPRESSION: ?? No mammographic evidence of malignancy. ? ASSESSMENT: ? BI-RADS BI-RADS 1 - Negative ? RECOMMENDATION: ?? Routine annual mammography screening. ? 1 year F/U ? This examination should not preclude the clinical evaluation of a ?? suspicious palpable abnormality. ? This patient's information was entered into a reminder system with a ?? target due date for their next mammogram. ? Dictated By: ?David Guevara MD ? Signed By: ?<Electronically signed by David Guevara MD in OV> ?01/26/24 1030 ? DD/ 9 ? TD/TT: ? Certified Court/Medical Interpreter: ? Procedure Note Donotuseinterpreter, Image - 01/26/2024 [facility] [address] [place] [address] Mammography Report Signed Patient: Noe TimmonsnMR#: [id number] : 7Acct:[id number] Age/Sex: 68 / FADM Date: 01/08/24 Loc: HO.MAMMO Attending Dr: Cintia Chambers MD Ordering Physician: Cintia Chambers MDResults: 1Negati ve Date of Service: 01/08/24Follow Up: 1 Year From Orig ina Mammogram Procedure(s): MM tomosynthesis screening BI Accession Number(s): [id number] cc: Cintia Chambers MD; Paulina Briggs MD EXAMINATION: MM SCREENING DIGITAL BREAST TOMOSYNTHESIS, BILATERAL CLINICAL INFORMATION: Screening. Asymptomatic. COMPARISON: Mammography: 01/06/2023, 12/31/2021, 10/03/2020, 09/28/2019 TECHNIQUE: Digital breast tomosynthesis is performed in both the craniocaudal and mediolateral oblique views along with computer-aided detection (CAD). Synthesized 2D images are generated from the tomosynthesis. FINDINGS: The breasts are heterogeneously dense, which may obscure small masses (ACR BI-RADS breast composition Category c). Breast parenchyma is borderline category B. There are no suspicious masses, suspicious grouped calcifications, or areas of architectural distortion in either breast. The parenchymal pattern is stable from prior exams. No skin or axillary abnormalities. MM/MM tomosynthesis screening BI IMPRESSION: No mammographic evidence of malignancy. ASSESSMENT: BI-RADS BI-RADS 1 - Negative RECOMMENDATION: Routine annual mammography screening. 1 year F/U This examination should not preclude the clinical evaluation of a suspicious palpable abnormality. This patient's information was entered into a reminder system with a target due date for their next mammogram. Dictated By: David Guevara MD Signed By: <Electronically signed by David Guevara MD in OV> 01/26/24 1030 DD/ 0930 TD/TT: Certified Court/Medical Interpreter: us Cintia Chambers MD IMG BI PROCEDURES Final Result * Lipid Panel with Reflex to Direct LDL (12/14/2023 3:23 PM EST) Triglycerides 90 <150 mg/dL [facility] Comment:Desirable Triglyceri de: less than 150 mg/dLBorderline High Triglyceride 150-199 mg/dLHigh Triglyceride: 200-499 mg/dLVery High Triglyceride: greater than or equal to 5OO mg/dL Cholesterol 174 <200 mg/dL [facility] Comment:Desirable Cholestero l: less than 200 mg/dLBorderline High Cholesterol: 200-239 mg/dLHigh Cholesterol: greater than 239 mg/dL LDL Cholesterol Calculated 73 <100 mg/dL [facility] Comment:Desirable LDL: less than 100 mg/dLNear Optimal/Above Optimal LDL: 110- 129 mg/dLBorderline High LDL: 130-159 mg/dLHigh LDL: 160-189 mg/dLVery High LDL: greater than or equal to 190 mg/dL HDL Cholesterol 83 >40 mg/dL [facility] Comment:Desirable HDL: great er than 40 mg/dL Note: This HDL assay may give artificially low results in patients with liver disease. Blood 12/14/2023 3:23 PM EST 12/14/2023 5:19 PM EST us Paulina Briggs MD LAB BLOOD ORDERABLES Final Resul t [facility] [address] [place] [phone] * HPV mRNA E6/E7 (12/09/2016 10:00 AM EST) HPV mRNA E6/E7 Not Detected NOT DETECTED [facility] Comment: This test was performed using the APTIMA(R) HPV Assay ([employer] This assay detects E6/E7 viral messenger RNA (mRNA) from 14 high-risk HPV types (16,18,31,33,35,39,45,51, 52,56,58,59,66,68). For additional information please refer to: http://education.EGEN.Traiana/faq/PMH317u3 (This link is being provided for informational/ educational purposes only.) Test Performed by [employer] [facility], [address] [place] [phone] Van Linton M.D., Ph.D., Director of Laboratories , ANH [id number] Please note: ??Effective 06/30/2016, HPV testing will be performed using [employer]'s APTIMA test which targets mRNA. Detecting mRNA instead of DNA, as in older methods, offers significant improvements in specificity. 12/09/2016 10:0 0 AM EST us Maryuri Johns CNM HISTORICAL/NON ORDERABLE LABS Final Result [facility] [address] from Last 3 Months or Most Recently Relevant to Health Maintenance Insurance [place] [address] [address] [place] [phone] [facility] * Guarantor: Rupinder Timmons Account Type Relation to Patient Date of Phone Billing Address Personal/Family Self [address] [place] Care Teams Software Security Consultant Relationship Specialty Start Date End Date Paulina Briggs MD [address] [place] [phone] PCP - General Family Medicine 12/28/23
--- OUTSIDE RECORDS SUMMARY | 2024-12-19 16:44 | XMS_ITS | Encounter Summary ---
Author Organization [employer] Address [address] [facility] [address] [place] [address] Care Team Providers Care Fruit Harvest Worker Name Role Phone Paulina Briggs MD Primary Care Provider [phone] Encounter Details Date Type Department Care Team (Latest Contact Info) Description 12/19/2024 Travel Social History Tobacco Use Types Packs/Day Years Used Date Smoking Tobacco: Former Cigarettes Passive Smoke Exposure: Never Depression Answer Date Recorded Patient Health Questionnaire-9 [...] Description 01/09/2025 11:30 AM EDT Clinical Support [facility] [address] [place] [address] documented as of this encounter Visit Diagnoses Not on filedocumented in this encounter Additional Health Concerns Assessment Noted Time PHQ-9 Depression Total Score: 0 12/20/19 25 2:05 PM EST documented as of this encounter Care Teams Fruit Harvest Worker Relationship Specialty Start Date End Date Paulina Briggs MD [address] [place] [address] PCP - General Family Medicine 12/28/23 documented as of this encounter
--- OUTSIDE RECORDS SUMMARY | 2024-12-19 16:44 | XMS_ITS | Encounter Summary ---
Author Organization [employer] Address [address] [place] [address] [place] [address] Care Team Providers Care Textile Colorist Formulator Name Role Phone Paulina Briggs MD Primary Care Provider [phone] Reason for Visit * Reason Comments Pre-visit Planning Pre-visit planning - LVM Encounter Details Date Type Department Care Team ([facility] st Contact Info) Description 12/06/2024 Patient Outreach [facility] MED[facility] [address] [place] [address] Paulina Briggs MD [address] [place] [address] Pre-visit Planning (Pre-visit planning - LVM ) Social History Tobacco Use Types Packs/Day Years [...] AM EDT documented as of this encounter Progress Notes * [place] - 12/06/2024 11:13 AM EST JUAN CARLOS Kitchen placed outbound call to patient to complete pre-visit planning. No answer at this time. Patient name and were not confirmed. CC left voicemail requesting return call. Direct contact information provided. documented in this encounter Plan of Treatment Upcoming Encounters Date Type Department Care Team (Late st Contact Info) Description 01/09/2025 11:30 AM EDT Clinical Support [facility] [address] [place] [address] documented as of this encounter Visit Diagnoses Not on filedocumented in this encounter Additional Health Concerns Assessment Noted Time PHQ-9 Depression Total Score: 0 12/14/19 3:26 PM EST documented as of this encounter Care Teams Textile Colorist Formulator Relationship Specialty Start Date End Date Paulina Briggs MD [address] [place] [address] PCP - General Family Medicine 12/28/23 documented as of this encounter
--- OUTSIDE RECORDS SUMMARY | 2024-12-19 16:44 | XMS_ITS | Encounter Summary ---
Author Organization [employer] Address [address] [place] [address] 7 [place] [address] Care Team Providers Care Peripheral Vascular Tech Name Role Phone Cintia Chambers MD Primary Care Provider [phone] Paulina Briggs MD Primary Care Provider [phone] Reason for Visit * Reason Onset Date Comments Results 12/03/2022 Encounter Details Date Type Department Care Team ([facility] Contact Info) Description 12/03/2022 Telephone [facility] MED & PEDS [address] [place] [address] Cintia Chambers MD [address] [place] [address] Results Social History Tobacco Use Types Packs/Day Years Used Date Smoking Tobacco: Never Assessed Comments Unknown Sex and Gender Information Value Date Recorded Sex Assigned at Female 08/18/2022 10:27 AM EDT Legal Sex Female 10:27 AM EDT Gender Identity Choose not to disclose 10:27 AM EDT Sexual Orientation Choose not to disclose 2021 10:27 AM EDT COVID-19 Exposure Response Date Recorded In the last 10 days, have yo u been in contact with someone who was confirmed or suspected to have Coronavirus/COVID-19? No / Unsure 11/19/2022 10:38 AM EST documented as of this encounter Miscellaneous Notes * Telephone Encounter - Cintia Chambers MD - 12/04/2022 10:41 AM EST Lubricants are over the counter * Telephone Encounter - Mindy Mcallister RN - 12/04/2022 10:00 AM EST TC placed to pt at [phone] in regards to lab results. Pt informed of recent lab results and verbalized understanding with no questions at this time. Pt requesting a vaginal lubricant for vaginal dryness. Informed pt RN would forward to PCP. Pt withno other concerns at this time. Pt to F/U PRN. * Telephone Encounter - Albina Link - 12/03/2022 1:04 PM EST Tc from pt requesting to speak about her results . documented in this encounter Plan of Treatment Upcoming Encounters Date Type Department Care Team (Late st Contact Info) Description 01/09/2025 11:30 AM EDT Clinical Support [facility] MEDICINE [address] [place] [address] documented as of this encounter Visit Diagnoses Not on filedocumented in this encounter Care Teams Peripheral Vascular Tech Relationship Specialty Start Date End Date Cintia Chambers MD [address] [place] [address] PCP - General Family Medicine 12/26/20 12/27/23 Paulina Briggs MD [address] [place] [address] PCP - General Family Medicine 12/28/23 documented as of this encounter
--- OUTSIDE RECORDS SUMMARY | 2024-12-19 16:44 | XMS_ITS | Encounter Summary ---
Author Organization [employer] Address [address] [facility] 7t [place] [address] Care Team Providers Care Patent Solicitor Name Role Phone Paulina Briggs MD Primary Care Provider [phone] Encounter Details Date Type Department Care Team ([facility] st Contact Info) Description 03/17/2024 Orders Only [facility] MEDICINE [address] [place] [address] Provider, MD Servando Social History Tobacco Use Types Packs/Day Years [...] Description 01/09/2025 11:30 AM EDT Clinical Support [facility] MEDICINE [address] [place] [address] documented as of this encounter Procedures Procedure Name Priority Date/Time Associated Diagnosis Comments HM COLONOSCOPY Routine 03/01/2024 9:07 AM EDT documented in this encounter Results * Hm Colonoscopy (03/01/2024 9:07 AM EDT) Historical Provider HEALTH MAINTENANCE Final Result documented in this encounter Visit Diagnoses Not on filedocumented in this encounter Additional Health Concerns Assessment Noted Time PHQ-9 Depression Total Score: 0 12/14/19 3:26 PM EST documented as of this encounter Care Teams Patent Solicitor Relationship Specialty Start Date End Date Paulina Briggs MD [address] [place] [address] PCP - General Family Medicine 12/28/23 documented as of this encounter
--- OUTSIDE RECORDS SUMMARY | 2024-12-19 16:44 | XMS_ITS | Encounter Summary ---
Author Organization [employer] Address [address] [place] [address] Care Team Providers Care Reception Centre Manager Name Role Phone Paulina Briggs MD Primary Care Provider [phone] Encounter Details Date Type Department Care Team ([facility] st Contact Info) Description 12/19/2024 1:15 PM EST Office Visit [facility] MEDICINE [address] [place], [place] [phone] Paulina Briggs MD [address] [place], [place] [phone] Essential hypertension (Primary Dx); Vitamin D deficiency; Hypothyroidism, unspecified type; Transaminitis; Pure hyperglyceridemia; Encounter for immunization; Flatulence; Diarrhea, unspecified type; Screening for diabetes mellitus Social History Tobacco Use Types Packs/Day Years [...] AM EDT documented as of this encounter Last Filed Vital Signs Vital Sign Reading [...] Mass Index 23.77 12/19/2024 1:15 PM EST documented in this encounter Miscellaneous Notes * Assessment & Plan Note - Nan Gallardo MA - 12/19/2024 1:52 PM ESTAssociated Problem(s): Transaminitis - recheck lab - patient rinks 2-3 cans of beer daily; continue reassessing amount and encourage sensible intake - consider US evaluation * Assessment & Plan Note - Nan Gallardo MA - 12/19/2024 1:51 PM ESTAssociated Problem(s): Pure hyperglyceridemia - current medication: atorvastatin 40 mg at bedtime - last lipid profile > 1 year ago - recheck lab - continue working on lifestyle modifications * Assessment & Plan Note - Nan Gallardo MA - 12/19/2024 1:51 PM ESTAssociated Problem(s): Hypothyroidism - current replacement: levothyroxine 50 mcg daily - last TSH > 1 year ago - check lab - check thyroid peroxidase antibody * Assessment & Plan Note - Nan Gallardo MA - 12/19/2024 1:51 PM ESTAssociated Problem(s): Essential hypertension -Goal BP < 150/90 per JNC-8 and < 130/80 per ACC/AHA guideline (Treatment threshold >= 140/90) -BP within acceptable range today -Continue working on lifestyle modifications -Recommended self-monitoring BP. -Continue current medications: lisinopril 10 mg daily -Follow up in 3-6 mo, sooner if any problem arises * Assessment & Plan Note - Nan Gallardo MA - 12/19/2024 1:51 PM ESTAssociated Problem(s): Vitamin D deficiency - check vitamin D level documented in this encounter Plan of Treatment Upcoming Encounters Date Type Department Care Team (Late st Contact Info) Description 01/09/2025 11:30 AM EDT Clinical Support [facility] MEDICINE [address] [place] [address] Scheduled Orders Name Type Priority Associated Diagnoses Orde r Schedule TSH with Reflex to Free T4 Lab Routine Hypothyroidism, unspecified type Expected: 12/19/2024 (Approximate), Expires: 12/19/2025 Lipid Panel with Reflex to Direct LDL Lab Routine Essential hypertension Transaminitis Expected: 12/19/2024 (Approximate), Expires: 12/19/2025 Albumin, Random Urine W/Creatinine Lab Routine Essential hypertension Expected: 12/19/2024 (Approximate), Expires: 12/19/2025 Vitamin D, 25-Hydroxy, Total, Immunoassay Lab Routine Vitamin D deficiency Expected: 12/19/2024 (Approximate), Expires: 12/19/2025 documented as of this encounter Procedures Procedure Name Priority Date/Time Associated Diagnosis Comments CBC WITH AUTO DIFFERENTIAL Routine 12/19/2024 2:06 PM EST Transaminitis LIPASE Routine 12/19/2024 2:06 PM EST Transaminitis HEMOGLOBIN A1C Routine 12/19/2024 2:06 PM EST Screening for diabetes mellitus COMPREHENSIVE METABOLIC PANEL Routine 12/19/2024 2:06 PM EST Essential hypertension documented in this encounter Results * (ABNORMAL) CBC auto differential (12/19/2024 2:06 PM EST) White Blood Count 8.2 4.8 - 10.8 X10*3/uL [facility] Red Blood Count 3.88(L) 4.20 - 5.50 X10*6/uL [facility] Hemoglobin 13.0 12.0 - 16.0 g/dl [facility] Hematocrit 38.4 37.0 - 47.0 % [facility] Mean Corpuscular Volume 99.0(H) 80.0 - 98.0 fL [facility] Mean Corpuscular Hemoglobin 33.5(H) 27.0 - 33.0 pg [facility] Mean Corpuscular HGB Conc 33.9 31.0 - 35.0 g/dl [facility] Red Cell Distribution Width 12.4 11.0 - 16.0 % [facility] Platelet Count 229 160 - 400 X10*3/uL [facility] Mean Platelet Volume 9.7 9.4 - 12.3 fL [facility] Neutrophils Percent Auto 70.8 45 - 73 % [facility] Imm Gran Pct Auto 0.4 0.0 - 0.4 % [facility] Lymphocytes Percent Auto 19.7(L) 20 - 40 % [facility] Monocytes Percent Auto 8.2 2 - 11 % [facility] Eosinophils Percent Auto 0.4 0 - 4 % [facility] Basophils Percent Auto 0.5 0 - 2 % [facility] NRBC Pct Auto 0.0 0.0 - 0.2 /100WBC [facility] Neutrophils Absolute Auto 5.8 2.0 - 8.3 x10*3/uL [facility] Imm Gran Abs Auto 0.03 0.00 - 0.03 X10*3/uL [facility] Lymphocytes Absolute Auto 1.6 1.2 - 4.9 X10*3/uL [facility] Monocytes Absolute Auto 0.7 0.1 - 1.2 X10*3/uL [facility] Eosinophils Absolute Auto 0.0 0.0 - 0.4 X10*3/uL [facility] Basophils Absolute Auto 0.0 0.0 - 0.2 X10*3/uL [facility] NRBC Abs Auto 0.000 0.0 - 0.012 X10*3/uL [facility] Blood Venous blood specimen / Unknown 12/19/2024 2:06 PM EST 12/19/2024 4:15 PM EST us Paulina Briggs MD LAB BLOOD ORDERABLES Final Resul t [facility] [address] [place] [address] [phone] * Lipase (12/19/2024 2:06 PM EST) Lipase 24 8 - 78 U/L [facility] Blood Venous blood specimen / Unknown 12/19/2024 2:06 PM EST 12/19/2024 4:15 PM EST us Paulina Briggs MD LAB BLOOD ORDERABLES Final Resul t Performing Organization Address City/[facility]/ZIP Co de Phone Number [facility] [address] [place] [address] [phone] * (ABNORMAL) Comprehensive Metabolic Panel (12/19/2024 2:06 PM EST) Sodium 142 135 - 145 mmol/L [facility] Potassium 4.1 3.3 - 5.1 mmol/L [facility] Chloride 107 96 - 108 mmol/L [facility] Carbon Dioxide 27 22 - 29 mmol/L [facility] Anion Gap 12 12 - 20 [facility] Urea Nitrogen (BUN) 12 9 - 16 mg/dL [facility] Creatinine, Serum 0.82 0.5 - 1.4 mg/dL [facility] Estimated Glomerular Filt Rate >60 [facility] Comment:Chronic Kidney Disea se: Estimated GFR < 60 mL/min/1.78g7Avshvo Kidney Disease: Estimated GFR < 15 mL/min/1.73m2 Glucose 104 60 - 115 mg/dL [facility] Calcium 9.6 8.4 - 10.2 mg/dL [facility] Bilirubin, Total 0.6 0.0 - 1.0 mg/dL [facility] Aspartate Amino Transferase 48(H) 5 - 31 U/L [facility] Alanine Aminotransferase 30 0 - 31 U/L [facility] Total Protein 7.8 6.5 - 8.0 g/dL [facility] Albumin Level 4.4 3.5 - 5.0 g/dL [facility] Alkaline Phosphatase 85 39 - 117 U/L [facility] Blood Venous blood specimen / Unknown 12/19/2024 2:06 PM EST 12/19/2024 4:15 PM EST us Paulina Briggs MD LAB BLOOD ORDERABLES Final Resul t [facility] [address] [place] [phone] [phone] * Hemoglobin A1c (12/19/2024 2:06 PM EST) Hemoglobin A1c 5.3 <6.0 % [facility] Comment:Hemoglobin A1C Refer ence Range Adults: 4.8 - 6.0 % Non diabetic: < 6.0 % Goal: < 7.0 %Additional Action Suggested: > 8.0 %Note: Hemoglobin A1c results are invalid for patients with abnormal amounts of HbF. Blood transfusions may impact the HbA1c concentration in the patient sample. Estimated Average Glucose 105 mg/dL [facility] Comment:eAG = Estimated ave rage glucose which is %A1C expressed asaverage glucose, using the formula of the T4R-JoeimbhIklbshc Glucose study (ADAG), Diabetes Care, Vol.31,#8,2007 Blood Venous blood specimen / Unknown 12/19/2024 2:06 PM EST 12/19/2024 4:15 PM EST us Paulina Briggs MD LAB BLOOD ORDERABLES Final Resul t [facility] [address] [place] [address] [phone] documented in this encounter Visit Diagnoses Diagnosis Essential hypertension- Primary Unspecified essential hypertension Vitamin D deficiency Hypothyroidism, unspecified type Transaminitis Nonspecific elevation of levels of transaminase or lactic acid dehydrogenase (LDH) Pure hyperglyceridemia Encounter for immunization Flatulence Flatulence, eructation, and gas pain Diarrhea, unspecified type Screening for diabetes mellitus documented in this encounter Additional Health Concerns Assessment Noted Time PHQ-9 Depression Total Score: 0 12/20/19 25 2:05 PM EST documented as of this encounter Care Teams Reception Centre Manager Relationship Specialty Start Date End Date Paulina Briggs MD [address] [place] [phone] PCP - General Family Medicine 12/28/23 documented as of this encounter
--- OUTSIDE RECORDS SUMMARY | 2024-12-19 16:44 | XMS_ITS | Encounter Summary ---
Author Organization [employer] Address [address] [place] [address] 7t [place] [address] Care Team Providers Care Hand Surgeon Name Role Phone Paulina Briggs MD Primary Care Provider Encounter Details Date Type Department Care Team (Late st Contact Info) Description 12/19/2024 Orders Only GENERIC EXTERNAL DATA DEPARTMENT Provider, Generic External Data Social History Tobacco Use Types Packs/Day Years [...] Description 01/09/2025 11:30 AM EDT Clinical Support [facility] MEDICINE [address] [place] [address] documented as of this encounter Procedures Procedure Name Priority Date/Time Associated Diagnosis Comments HEPATIC FUNCTION PANEL Routine 12/19/2024 2:06 PM EST documented in this encounter Results * Hepatic Function Panel (12/19/2024 2:06 PM EST) Bilirubin, Direct 0.2 0.0 - 0.5 mg/dL [facility] 12/19/2024 2:06 PM EST 12/19/2024 4:15 PM EST us Generic External Data Provider LAB BLOOD ORDERAB LES Final Result Performing Organization Address City/State/[facility] Co de Phone Number [facility] [address] [place] [address] [phone] documented in this encounter Visit Diagnoses Not on filedocumented in this encounter Additional Health Concerns Assessment Noted Time PHQ-9 Depression Total Score: 0 12/20/19 25 2:05 PM EST documented as of this encounter Care Teams Hand Surgeon Relationship Specialty Start Date End Date Paulina Briggs MD [address] [place] [address] PCP - General Family Medicine 12/28/23 documented as of this encounter
--- OUTSIDE RECORDS SUMMARY | 2024-12-19 16:44 | XMS_ITS | Encounter Summary ---
Author Organization [employer] Address [address] [place] [address] 7t [place] [address] Care Team Providers Care Commercial Glazier Name Role Phone Paulina Briggs MD Primary Care Provider [phone] Reason for Visit * Reason Onset Date Comments Med Refill 04/20/2024 Encounter Details Date Type Department Care Team (Late st Contact Info) Description 04/20/2024 Refill [facility] CHC MED & PEDS [address] [place] [address] Paulina Briggs MD [address] [place] [address] Hypothyroidism, unspecified type Social History Tobacco Use Types Packs/Day Years [...] Description 01/09/2025 11:30 AM EDT Clinical Support [facility] MEDICINE [address] [place] [address] documented as of this encounter Visit Diagnoses Diagnosis Hypothyroidism, unspecified type documented in this encounter Additional Health Concerns Assessment Noted Time PHQ-9 Depression Total Score: 0 12/14/19 24 3:26 PM EST documented as of this encounter Care Teams Commercial Glazier Relationship Specialty Start Date End Date Paulina Birggs MD [address] [place] [phone] PCP - General Family Medicine 12/28/23 documented as of this encounter
[2024-12-19 17:01] LABS: TSH reflex Free T4 2.55 uIU/mL (0.32-4.0); Vitamin D 25-OH Total 73.7 ng/mL (>30)
[2024-12-19 17:41] LABS: Reflex LDLD? No
== END 2024-12-19 14:03 | disposition home or self-care (01) ==
LOC: HO.HHCL 14:02
PROVIDERS: Nurse Practitioner Family; Visit Provider Family Medicine
DX: R74.01 Elevation of levels of liver transaminase levels (principal); E03.9 Hypothyroidism, unspecified; Z13.1 Encounter for screening for diabetes mellitus; E55.9 Vitamin D deficiency, unspecified; I10 Essential (primary) hypertension
CPT/HCPCS: 36415; 80053; 80061; 80076; 82248; 82306; 83036; 83690; 84443; 85025

== ENCOUNTER 2025-01-09 11:47 | Outpatient (REF) | payer MEDICARE, SELFPAY | END 2025-01-09 11:48 | disposition home or self-care (01) | LOC: HO.HHCL 11:47 | PROVIDERS: Visit Provider Family Medicine | DX: Z13.89 Encounter for screening for other disorder (principal) ==

== ENCOUNTER 2025-01-11 11:26 | Outpatient (REF) | payer MEDICARE, SELFPAY ==
[2025-01-11 15:10] LABS: Creatinine Urine 54.68 mg/dL; Microalbumin Urine < 5.0 mg/L
== END 2025-01-11 11:27 | disposition home or self-care (01) ==
LOC: HO.CHCLNP 11:26
PROVIDERS: Visit Provider Family Medicine
DX: I10 Essential (primary) hypertension (principal)
CPT/HCPCS: 82043; 82570

== ENCOUNTER 2025-01-13 08:51 | Outpatient (REF) | payer MEDICARE, SELFPAY | END 2025-01-13 08:52 | disposition home or self-care (01) | LOC: HO.MAMMO 08:51 | PROVIDERS: PCP Family Medicine; Visit Provider Student in an Organized Health Care Education/Training Program | DX: Z12.31 Encounter for screening mammogram for malignant neoplasm of breast (principal) | CPT/HCPCS: 77063; 77067 ==

== ENCOUNTER → 2025-01-13 09:00 | Outpatient (BNV) | payer MEDICARE, SELFPAY | PROVIDERS: PCP Family Medicine; Visit Provider Internal Medicine | DX: Z12.31 Encounter for screening mammogram for malignant neoplasm of breast (principal) | CPT/HCPCS: 77063; 77067 ==

== ENCOUNTER 2025-05-30 14:25 | Outpatient (REF) | payer MEDICARE, SELFPAY ==
--- OUTSIDE RECORDS SUMMARY | 2025-05-30 15:19 | XMS_ITS | Encounter Summary ---
Author Organization [employer] Address [address] [place] [address] 7 [place] [address] Care Team Providers Care Agriculture Sales Account Manager Name Role Phone Cintia Chambers MD Primary Care Provider [phone] Paulina Briggs MD Primary Care Provider [phone] Reason for Visit * Reason Onset Date Comments Results 12/03/2022 Encounter Details Date Type Department Care Team ([facility] Contact Info) Description 12/03/2022 Telephone [facility] CHC MED & PEDS [address] [place] [address] Cintia Chambers MD [address] [place] [address] Results Social History Tobacco Use Types Packs/Day [...] AM EST TC placed to pt at [phone] in regards to lab results. Pt informed [...] Care Team (Late st Contact Info) Description 07/10/2025 11:30 AM EDT Office Visit [facility] MEDICINE [address] [place] [address] Paulina Briggs MD [address] [place] [address] documented as of this encounter Visit Diagnoses Not on filedocumented in this encounter Care Teams Agriculture Sales Account Manager Relationship Specialty Start Date End Date Cintia Chambers MD [address] [place] [phone] PCP - General Family Medicine 12/26/20 12/27/23 Paulina Briggs MD [address] [place] [phone] PCP - General Family Medicine 12/28/23 documented as of this encounter
[2025-05-30 17:49] LABS: MANUAL DIFF FLAG NO
[2025-05-30 17:53] LABS: Hematocrit 38.2 % (37.0-47.0); Hemoglobin 12.7 g/dl (12.0-16.0); Imm Gran Abs Auto 0.02 X10*3/uL (0.00-0.03); Imm Gran Pct Auto 0.3 % (0.0-0.4); Lymphocytes Absolute Auto 1.7 X10*3/uL (1.2-4.9); Mean Corpuscular HGB Conc 33.2 g/dl (31.0-35.0); Mean Corpuscular Hemoglobin 33.2 pg (27.0-33.0); Mean Corpuscular Volume 100.0 fL (80.0-98.0); NRBC Abs Auto 0.000 X10*3/uL (0.0-0.012); NRBC Pct Auto 0.0 /100WBC (0.0-0.2); Platelet Count 233 X10*3/uL (160-400); Red Blood Count 3.82 X10*6/uL (4.20-5.50); White Blood Count 7.3 X10*3/uL (4.8-10.8)
[2025-05-30 18:15] LABS: Alanine Aminotransferase 28 U/L (0-31); Albumin Level 4.7 g/dL (3.5-5.0); Alkaline Phosphatase 80 U/L (39-117); Anion Gap 14 (12-20); Aspartate Amino Transferase 35 U/L (5-31); Blood Urea Nitrogen 11 mg/dL (9-16); Calcium 9.9 mg/dL (8.4-10.2); Carbon Dioxide 28 mmol/L (22-29); Chloride 106 mmol/L (96-108); Cholesterol 158 mg/dL (<200); Estimated Glomerular Filt Rate > 60; HDL Cholesterol 70 mg/dL (>40); Potassium 3.7 mmol/L (3.3-5.1); Sodium 144 mmol/L (135-145); Total Protein 7.5 g/dL (6.5-8.0); Triglycerides 100 mg/dL (<150)
[2025-05-30 21:35] LABS: Reflex LDLD? No
== END 2025-05-30 14:26 | disposition home or self-care (01) ==
LOC: HO.HHCL 14:25
PROVIDERS: PCP Family Medicine; Visit Provider Family Medicine
DX: K76.0 Fatty (change of) liver, not elsewhere classified (principal); E03.9 Hypothyroidism, unspecified; E78.5 Hyperlipidemia, unspecified
CPT/HCPCS: 36415; 80053; 80061; 84443; 85025

== ENCOUNTER 2025-07-10 08:52 | Outpatient (REF) | payer MEDICARE, SELFPAY ==
--- NOTE | ~2025-07-10 | US_ITS ---
EXAMINATION: US ABDOMEN COMPLETE WITH LIVER ELASTOGRAPHY HISTORY: transaminitis, MASLD TECHNIQUE: Real-time grayscale ultrasound imaging of the abdomen was performed and images were reviewed. COMPARISON: Comparison is made with the prior examination dated 06/17/2024. FINDINGS: Liver: The right lobe of the liver measures 11.6 cm in size. The left lobe of the liver measures 9.7 cm in size. The liver demonstrates increased echotexture, consistent with steatosis. No focal mass or intrahepatic biliary ductal dilatation is identified. There is normal hepatopedal flow in the portal vein. Ultrasound elastography of the liver was performed with 10 separate measurements of the liver parenchyma with the patient in the supine position. Measurements were obtained approximately 2 cm below Adelia's capsule and perpendicular to the capsule. The median shear wave velocity is 1.71 m/s (previously 1.50 m/s). The interquartile range/median (IQR/median) is 0.04. Gallbladder and biliary tree: The gallbladder is surgically absent. The common bile duct measures 8 mm diameter. Kidneys: The right kidney measures 9.1 cm in length. The left kidney measures 9.4 cm in length. The kidneys are unremarkable, without evidence of masses, hydronephrosis, or calculi. Pancreas: The pancreatic head, neck, and body are unremarkable. The pancreatic tail is obscured by bowel gas. Spleen: The spleen is normal in size and contour, measuring 7.8 cm in length. Abdominal aorta and inferior vena cava: The visualized portions of the abdominal aorta and inferior vena cava are normal in caliber. There is no free fluid in the abdomen. US/US abdomen comp w elastography IMPRESSION: Hepatic steatosis. The median shear wave velocity in the liver is 1.71 m/s, corresponding to a median liver stiffness of 8.97 kPa. The IQR/median value is 0.04. This is indicative of a quality data set. Findings are indicative of a high elastography value suggestive of compensated advanced chronic liver disease. REFERENCE: Society of Radiologists in Ultrasound Liver Stiffness Thresholds (2019): LIVER STIFFNESS THRESHOLDS: *Shear wave velocity less than 1.3 m/s (Liver Stiffness equal or less than 5 kPa): High probability of being normal. *Shear wave velocity less than 1.7 m/s (Liver Stiffness less than 9 kPa): In the absence of other known clinical signs, rules out compensated advanced chronic liver disease. *Shear wave velocity between 1.7-2.1 m/s (Liver Stiffness 9-13 kPa): Suggestive of compensated advanced chronic liver disease but need further test for confirmation. *Shear wave velocity between 2.1-2.4 m/s (Liver Stiffness 13-17 kPa): Rules in compensated advanced chronic liver disease. *Shear wave velocity greater than 2.4 m/s (Liver Stiffness over 17 kPa): Suggestive of clinically significant portal hypertension. QUALITY OF DATA SET: *IQR/Median value equal or less than 0.15 implies a quality data set. *IQR/Median value over 0.15 implies a poor quality data set. SIGNIFICANT CHANGE FROM PRIOR EXAM: Significant change if liver stiffness measurement is 10% or greater from prior exam. OTHER CONSIDERATIONS: The stage of liver fibrosis may be overestimated in the setting of acute hepatitis, liver inflammation, elevated liver function tests, hepatic vascular congestion, obstructive cholestasis, non-fasting state, and infiltrative diseases such as amyloidosis and lymphoma. In some patients with NAFLD, the liver stiffness thresholds for compensated advanced chronic liver disease may be lower. In causes other than viral hepatitis and NAFLD, liver stiffness thresholds are not well established. Electronically signed by: Alexandro Harley MD 07/10/2025 09:43 AM EDT
--- OUTSIDE RECORDS SUMMARY | 2025-07-10 10:14 | XMS_ITS | Encounter Summary ---
Author Organization [employer] Address [address] [facility] 7t [place] [address] Care Team Providers Care Spa Technician Name Role Phone Paulina Briggs MD Primary Care Provider [phone] Encounter Details Date Type Department Care Team ([facility] st Contact Info) Description 07/07/2025 Telephone [facility] [address] [place], [place] [phone] Jessy Dillon MA Social History Tobacco Use Types Packs/Day Years [...] encounter Miscellaneous Notes * Telephone Encounter - Jessy Dillon MA - 07/07/2025 2:11 PM EDT Chart Prep Labs: done Images: us abdomen ordered 05/15/25 Referrals: radiology autho 05/15/25 Vaccines due: Covid, Flu, and Hep A Screenings: not applicable Overdue care gaps: Not applicable documented in this encounter Plan of Treatment Upcoming Encounters Date Type Department Care Team (Late st Contact Info) Description 07/10/2025 11:30 AM EDT Office Visit [facility] MEDICINE [address] [place] [address] Paulina Briggs MD [address] [place] [address] 10/27/2025 10:30 AM EST Office Visit [facility] OPTOMETRY [address] [place] [address] Nina Gutiérrez, OD [address] [place] [address] documented as of this encounter Visit Diagnoses Not on filedocumented in this encounter Additional Health Concerns Assessment Noted Time PHQ-9 Depression Total Score: 0 12/20/19 25 2:05 PM EST documented as of this encounter Care Teams Spa Technician Relationship Specialty Start Date End Date Paulina Briggs MD [address] [place] [address] PCP - General Family Medicine 12/28/23 documented as of this encounter
--- OUTSIDE RECORDS SUMMARY | 2025-07-10 10:14 | XMS_ITS | Encounter Summary ---
Author Organization [employer] Address [address] [place] [address] 7t [place] [address] Care Team Providers Care Bread Supervisor Name Role Phone Paulina Briggs MD Primary Care Provider [phone] Encounter Details Date Type Department Care Team (Latest Contact Info) Description 05/31/2025 Results Follow-Up [facility] MEDICINE [address] [place] [address] Paulina Briggs MD [address] [place] [address] TSH with Reflex to Free T4, Comprehensive Metabolic Panel, Lipid Panel with Reflex to Direct LDL, CBC auto differential Social History Tobacco Use Types Packs/Day Years [...] Description 07/10/2025 11:30 AM EDT Office Visit [facility] MEDICINE [address] [place] [address] Paulina Briggs MD [address] [place] [address] 10/27/2025 10:30 AM EST Office Visit [facility] OPTOMETRY [address] [place] [address] Tarka, Nina, OD [address] [place] [address] documented as of this encounter Visit Diagnoses Not on filedocumented in this encounter Additional Health Concerns Assessment Noted Time PHQ-9 Depression Total Score: 0 12/20/19 25 2:05 PM EST documented as of this encounter Care Teams Bread Supervisor Relationship Specialty Start Date End Date Paulina Briggs MD [address] [place] [address] PCP - General Family Medicine 12/28/23 documented as of this encounter
--- OUTSIDE RECORDS SUMMARY | 2025-07-10 10:14 | XMS_ITS | Encounter Summary ---
Author Organization [employer] Address [address] [place] [address] 7 [place] [address] Care Team Providers Care Personal Companion Name Role Phone Paulina Briggs MD Primary Care Provider Encounter Details Date Type Department Care Team (Late st Contact Info) Description 05/30/2025 Orders Only [facility] [address] [place], [place] [phone] Paulina Briggs MD [address] [place], [place] [phone] Hypothyroidism, unspecified type (Primary Dx); Essential hypertension; Metabolic dysfunction-associated steatotic liver disease (MASLD); Dyslipidemia Social History Tobacco Use Types Packs/Day Years [...] Description 07/10/2025 11:30 AM EDT Office Visit [facility] [address] [place] [address] Paulina Briggs MD [address] [place] [address] 10/27/2025 10:30 AM EST Office Visit [facility] OPT[facility] [address] [place] [address] TarNina braxton, OD [address] [place] [address] documented as of this encounter Procedures Procedure Name Priority Date/Time Associated Diagnosis Comments TSH W/REFLEX TO FT4 Routine 05/30/2025 2 :33 PM EDT Hypothyroidism, unspecified type LIPID PANEL WITH REFLEX TO DIRECT LDL Routine 05/30/2025 2:33 PM EDT Dyslipidemia CBC WITH AUTO DIFFERENTIAL Routine 05/30/2025 2:33 PM EDT Metabolic dysfunction-[facility] steatotic liver disease (MASLD) COMPREHENSIVE METABOLIC PANEL Routine 05/30/2025 2:33 PM EDT Metabolic dysfunction-associa ashley steatotic liver disease (MASLD) documented in this encounter Results * (ABNORMAL) CBC auto differential (05/30/2025 2:33 PM EDT) White Blood Count 7.3 4.8 - 10.8 X10*3/uL [facility] Red Blood Count 3.82(L) 4.20 - 5.50 X10*6/uL [facility] Hemoglobin 12.7 12.0 - 16.0 g/dl [facility] Hematocrit 38.2 37.0 - 47.0 % [facility] Mean Corpuscular Volume 100.0(H) 80.0 - 98.0 fL [facility] Mean Corpuscular Hemoglobin 33.2(H) 27.0 - 33.0 pg [facility] Mean Corpuscular HGB Conc 33.2 31.0 - 35.0 g/dl [facility] Red Cell Distribution Width 12.8 11.0 - 16.0 % [facility] Platelet Count 233 160 - 400 X10*3/uL [facility] Mean Platelet Volume 10.0 9.4 - 12.3 fL [facility] Neutrophils Percent Auto 67.2 45 - 73 % [facility] Imm Gran Pct Auto 0.3 0.0 - 0.4 % [facility] Lymphocytes Percent Auto 23.6 20 - 40 % [facility] Monocytes Percent Auto 7.6 2 - 11 % [facility] Eosinophils Percent Auto 0.7 0 - 4 % [facility] Basophils Percent Auto 0.6 0 - 2 % [facility] NRBC Pct Auto 0.0 0.0 - 0.2 /100WBC [facility] Neutrophils Absolute Auto 4.9 2.0 - 8.3 x10*3/uL [facility] Imm Gran Abs Auto 0.02 0.00 - 0.03 X10*3/uL [facility] Lymphocytes Absolute Auto 1.7 1.2 - 4.9 X10*3/uL [facility] Monocytes Absolute Auto 0.6 0.1 - 1.2 X10*3/uL [facility] Eosinophils Absolute Auto 0.1 0.0 - 0.4 X10*3/uL [facility] Basophils Absolute Auto 0.0 0.0 - 0.2 X10*3/uL [facility] NRBC Abs Auto 0.000 0.0 - 0.012 X10*3/uL [facility] Blood Venous blood specimen / Unknown 05/30/2025 2:33 PM EDT 05/30/2025 5:45 PM EDT us Paulina Briggs MD LAB BLOOD ORDERABLES Final Resul t [facility] [address] [place] [phone] * Lipid Panel with Reflex to Direct LDL (05/30/2025 2:33 PM EDT) Triglycerides 100 <150 mg/dL [facility] Comment:Desirable Triglyceri de: less than 150 mg/dLBorderline High Triglyceride 150-199 mg/dLHigh Triglyceride: 200-499 mg/dLVery High Triglyceride: greater than or equal to 5OO mg/dL Cholesterol 158 <200 mg/dL [facility] Comment:Desirable Cholestero l: less than 200 mg/dLBorderline High Cholesterol: 200-239 mg/dLHigh Cholesterol: greater than 239 mg/dL LDL Cholesterol Calculated 68 <100 mg/dL [facility] Comment:Desirable LDL: less than 100 mg/dLNear Optimal/Above Optimal LDL: 110- 129 mg/dLBorderline High LDL: 130-159 mg/dLHigh LDL: 160-189 mg/dLVery High LDL: greater than or equal to 190 mg/dL HDL Cholesterol 70 >40 mg/dL [facility] Comment:Desirable HDL: great er than 40 mg/dL Note: This HDL assay may give artificially low results in patients with liver disease. Blood 05/30/2025 2:33 PM EDT 05/30/2025 5:40 PM EDT us Paulina Briggs MD LAB BLOOD ORDERABLES Final Resul t Performing Organization Address City/[facility]/ZIP Co de Phone Number [facility] [address] [place] [phone] * (ABNORMAL) Comprehensive Metabolic Panel (05/30/2025 2:33 PM EDT) Sodium 144 135 - 145 mmol/L [facility] Potassium 3.7 3.3 - 5.1 mmol/L [facility] Chloride 106 96 - 108 mmol/L [facility] Carbon Dioxide 28 22 - 29 mmol/L [facility] Anion Gap 14 12 - 20 [facility] Urea Nitrogen (BUN) 11 9 - 16 mg/dL [facility] Creatinine, Serum 0.85 0.5 - 1.4 mg/dL [facility] Estimated Glomerular Filt Rate >60 [facility] Comment:Chronic Kidney Disea se: Estimated GFR < 60 mL/min/1.82i0Eammea Kidney Disease: Estimated GFR < 15 mL/min/1.73m2 Glucose 97 60 - 115 mg/dL [facility] Calcium 9.9 8.4 - 10.2 mg/dL [facility] Bilirubin, Total 1.0 0.0 - 1.0 mg/dL [facility] Aspartate Amino Transferase 35(H) 5 - 31 U/L [facility] Alanine Aminotransferase 28 0 - 31 U/L [facility] Total Protein 7.5 6.5 - 8.0 g/dL [facility] Albumin Level 4.7 3.5 - 5.0 g/dL [facility] Alkaline Phosphatase 80 39 - 117 U/L [facility] Blood Venous blood specimen / Unknown 05/30/2025 2:33 PM EDT 05/30/2025 5:40 PM EDT us Paulina Briggs MD LAB BLOOD ORDERABLES Final Resul t Performing Organization Address City/[facility]/ZIP Co de Phone Number [facility] [address] [place] [phone] * TSH with Reflex to Free T4 (05/30/2025 2:33 PM EDT) TSH reflex Free T4 2.50 0.32 - 4.0 uIU/mL [facility] Blood 05/30/2025 2:33 PM EDT 05/30/2025 5:40 PM EDT us Paulina Briggs MD LAB BLOOD ORDERABLES Final Resul t [facility] [address] [place] [phone] documented in this encounter Visit Diagnoses Diagnosis Hypothyroidism, unspecified type- Primary Essential hypertension Unspecified essential hypertension Metabolic dysfunction-associated steatotic liver disease (MASLD) Dyslipidemia Other and unspecified hyperlipidemia Transaminitis- Primary Nonspecific elevation of levels of transaminase or lactic acid dehydrogenase (LDH) Metabolic dysfunction-associated steatotic liver disease (MASLD) Hypothyroidism, unspecified type Essential hypertension Unspecified essential hypertension documented in this encounter Additional Health Concerns Assessment Noted Time PHQ-9 Depression Total Score: 0 12/20/19 25 2:05 PM EST documented as of this encounter Care Teams Personal Companion Relationship Specialty Start Date End Date Paulina Briggs MD [address] [place] [address] PCP - General Family Medicine 12/28/23 documented as of this encounter
--- OUTSIDE RECORDS SUMMARY | 2025-07-10 10:14 | XMS_ITS | Encounter Summary ---
Author Organization [employer] Address [address] [place] [address] [address] [place] [address] Care Team Providers Care Food Service Order Clerk Name Role Phone Paulina Briggs MD Primary Care Provider [phone] Reason for Visit * Reason Onset Date Comments Med Refill 04/20/2024 Encounter Details Date Type Department Care Team (Late st Contact Info) Description 04/20/2024 Refill [facility] [address] [place] [address] Paulina Briggs MD [address] [place] [address] Hypothyroidism, unspecified type Social History Tobacco Use [...] Description 07/10/2025 11:30 AM EDT Office Visit [facility] [address] [place] [address] Paulina Briggs MD [address] [place] [address] 10/27/2025 10:30 AM EST Office Visit [facility] OPTOMETRY [address] [place], [place] [phone] Nina Gutiérrez, OD [address] [place] [address] documented as of this encounter Visit Diagnoses Diagnosis Hypothyroidism, unspecified type Transaminitis- Primary Nonspecific elevation of levels of transaminase or lactic acid dehydrogenase (LDH) Metabolic dysfunction-associated steatotic liver disease (MASLD) Hypothyroidism, unspecified type Essential hypertension Unspecified essential hypertension documented in this encounter Additional Health Concerns Assessment Noted Time PHQ-9 Depression Total Score: 0 12/14/19 24 3:26 PM EST documented as of this encounter Care Teams Food Service Order Clerk Relationship Specialty Start Date End Date Paulina Briggs MD [address] [place] [phone] PCP - General Family Medicine 12/28/23 documented as of this encounter
--- OUTSIDE RECORDS SUMMARY | 2025-07-10 10:14 | XMS_ITS | Encounter Summary ---
Author Organization [employer] Address [address] [place] [address] 7 [place] [address] Care Team Providers Care Lipcoat Sprayer Name Role Phone Cintia Chambers MD Primary Care Provider [phone] Paulina Briggs MD Primary Care Provider [phone] Reason for Visit * Reason Onset Date Comments Results 12/03/2022 Encounter Details Date Type Department Care Team ([facility] Contact Info) Description 12/03/2022 Telephone [facility] [address] [place] [address] Cintia Chambers MD [address] [place] [address] Results Social History Tobacco Use Types Packs/Day [...] AM EST TC placed to pt at [phone] in regards to lab results. Pt informed [...] Description 07/10/2025 11:30 AM EDT Office Visit [facility] [address] [place] [address] Paulina Briggs MD [address] [place] [address] 10/27/2025 10:30 AM EST Office Visit [facility] OPTOMETRY [address] [place] [address] Nina Gutiérrez, OD [address] [place] [address] documented as of this encounter Visit Diagnoses Not on filedocumented in this encounter Care Teams Lipcoat Sprayer Relationship Specialty Start Date End Date Cintia Chambers MD [address] [place] [phone] PCP - General Family Medicine 12/26/20 12/27/23 Paulina Briggs MD [address] [place] [phone] PCP - General Family Medicine 12/28/23 documented as of this encounter
--- OUTSIDE RECORDS SUMMARY | 2025-07-10 10:14 | XMS_ITS | Encounter Summary ---
Author Organization [employer] Address [address] [facility] [address]t [place] [address] Care Team Providers Care Arts Administrator Name Role Phone Paulina Briggs MD Primary Care Provider [phone] Encounter Details Date Type Department Care Team ([facility] st Contact Info) Description 03/17/2024 Orders Only [facility] [address] [place] [address] Provider, MD Servando Social History Tobacco Use [...] Description 07/10/2025 11:30 AM EDT Office Visit [facility] [address] [place] [address] Paulina Briggs MD [address] [place] [address] 10/27/2025 10:30 AM EST Office Visit [facility] OPT[facility] [address] [place] [address] Nina Gutiérrez, OD [address] [place] [address] documented as of this encounter Procedures Procedure Name Priority Date/Time Associated Diagnosis Comments HM COLONOSCOPY Routine 03/01/2024 9:07 AM EDT documented in this encounter Results * Hm Colonoscopy (03/01/2024 9:07 AM EDT) us Historical Provider HEALTH MAINTENANCE Final Result documented in this encounter Visit Diagnoses Not on filedocumented in this encounter Additional Health Concerns Assessment Noted Time PHQ-9 Depression Total Score: 0 12/14/19 3:26 PM EST documented as of this encounter Care Teams Arts Administrator Relationship Specialty Start Date End Date Paulina Briggs MD [address] [place] [address] PCP - General Family Medicine 12/28/23 documented as of this encounter
--- OUTSIDE RECORDS SUMMARY | 2025-07-10 10:14 | XMS_ITS | Encounter Summary ---
Author Organization [employer] Address [address] [place] [address] [address] [place] [address] Care Team Providers Care Hull Inspector Name Role Phone Paulina Briggs MD Primary Care Provider [phone] Reason for Referral * Imaging (Routine) - Authorized Specialty Diagnoses / Procedures Referred By Contac t Referred To Contact Radiology Diagnoses Transaminitis Metabolic dysfunction-associated steatotic liver disease (MASLD) Procedures US Abdomen Comp w elastography Paulina Briggs MD [address] [place] [address] Phone: tel: fax: [address] Phone: tel: fax: Referral ID Status Reason Start Date Expiration Date V isits Requested Visits Authorized [id number] Authorized 05/15/2025 05/15/2026 1 1 Encounter Details Date Type Department Care Team (Late st Contact Info) Description 05/15/2025 Orders Only [facility] [address] [place] [address] Paulina Briggs MD [address] [place], [place] [phone] Transaminitis (Primary Dx); Metabolic dysfunction-associated steatotic liver disease (MASLD) Social History Tobacco Use Types Packs/Day Years [...] Description 07/10/2025 11:30 AM EDT Office Visit [facility] [address] [place], [place] [phone] Paulina Briggs MD [address] [place] [address] 10/27/2025 10:30 AM EST Office Visit [facility] [address] [place], [place] [phone] Nina Gutiérrez, OD [address] [place] [address] documented as of this encounter Procedures Procedure Name Priority Date/Time Associated Diagnosis Comments US ABDOMEN COMPLETE WITH ELASTOGRAPHY Routine 07/10/2025 9:08 AM EDT Transaminitis Metabolic dysfunction-associa ashley steatotic liver disease (MASLD) documented in this encounter Results * US Abdomen Comp w elastography (07/10/2025 9:08 AM EDT) Anatomical Region Laterality Modality Abdomen Ultrasound 07/10/2025 9:08 AM EDT Narrative 07/10/2025 9:46 AM EDT [facility] [address] [place] [address] Ultrasound Report Signed Patient: Nataliya Timmons MR#: [id number] 643 : 1955 Acct:[id number] Age/Sex: 70 / F ADM Date: 07/10/25 Loc: HO.US Attending Dr: Paulina Briggs MD Ordering Physician: Paulina Briggs MD Date of Service: 07/10/25 Procedure(s): US abdomen comp w elastography Accession Number(s): [id number] cc: Paulina Briggs MD Reason for Exam: transaminitis, MASLD EXAMINATION: US ABDOMEN COMPLETE WITH LIVER ELASTOGRAPHY HISTORY: transaminitis, MASLD TECHNIQUE: Real-time grayscale ultrasound imaging of the abdomen was performed and images were reviewed. COMPARISON: Comparison is made with the prior examination dated 06/17/2024. FINDINGS: Liver: The right lobe of the liver measures 11.6 cm in size. The left lobe of the liver measures 9.7 cm in size. The liver demonstrates increased echotexture, consistent with steatosis. No focal mass or intrahepatic biliary ductal dilatation is identified. There is normal hepatopedal flow in the portal vein. Ultrasound elastography of the liver was performed with 10 separate measurements of the liver parenchyma with the patient in the supine position. Measurements were obtained approximately 2 cm below Adelia's capsule and perpendicular to the capsule. The median shear wave velocity is 1.71 m/s (previously 1.50 m/s). The interquartile range/median (IQR/median) is 0.04. Gallbladder and biliary tree: The gallbladder is surgically absent. The common bile duct measures 8 mm diameter. Kidneys: The right kidney measures 9.1 cm in length. The left kidney measures 9.4 cm in length. The kidneys are unremarkable, without evidence of masses, hydronephrosis, or calculi. Pancreas: The pancreatic head, neck, and body are unremarkable. The pancreatic tail is obscured by bowel gas. Spleen: The spleen is normal in size and contour, measuring 7.8 cm in length. Abdominal aorta and inferior vena cava: The visualized portions of the abdominal aorta and inferior vena cava are normal in caliber. There is no free fluid in the abdomen. US/US abdomen comp w elastography IMPRESSION: Hepatic steatosis. The median shear wave velocity in the liver is 1.71 m/s, corresponding to a median liver stiffness of 8.97 kPa. The IQR/median value is 0.04. This is indicative of a quality data set. Findings are indicative of a high elastography value suggestive of compensated advanced chronic liver disease. REFERENCE: Society of Radiologists in Ultrasound Liver Stiffness Thresholds (2020): LIVER STIFFNESS THRESHOLDS: *Shear wave velocity less than 1.3 m/s (Liver Stiffness equal or less than 5 kPa): High probability of being normal. *Shear wave velocity less than 1.7 m/s (Liver Stiffness less than 9 kPa): In the absence of other known clinical signs, rules out compensated advanced chronic liver disease. *Shear wave velocity between 1.7-2.1 m/s (Liver Stiffness 9-13 kPa): Suggestive of compensated advanced chronic liver disease but need further test for confirmation. *Shear wave velocity between 2.1-2.4 m/s (Liver Stiffness 13-17 kPa): Rules in compensated advanced chronic liver disease. *Shear wave velocity greater than 2.4 m/s (Liver Stiffness over 17 kPa): Suggestive of clinically significant portal hypertension. QUALITY OF DATA SET: *IQR/Median value equal or less than 0.15 implies a quality data set. *IQR/Median value over 0.15 implies a poor quality data set. SIGNIFICANT CHANGE FROM PRIOR EXAM: Significant change if liver stiffness measurement is 10% or greater from prior exam. OTHER CONSIDERATIONS: The stage of liver fibrosis may be overestimated in the setting of acute hepatitis, liver inflammation, elevated liver function tests, hepatic vascular congestion, obstructive cholestasis, non-fasting state, and infiltrative diseases such as amyloidosis and lymphoma. In some patients with NAFLD, the liver stiffness thresholds for compensated advanced chronic liver disease may be lower. In causes other than viral hepatitis and NAFLD, liver stiffness thresholds are not well established. Electronically signed by: Alexandro Harley MD 07/10/2025 09:43 AM EDT Dictated By: Alexandro Harley MD Signed By: <Electronically signed by Alexandro Harley MD in [place]> 07/10/25942 DD/ 7 TD/TT: 07/10/25923 Employee Counselor: Procedure Note Donotuseinterpreter, Image - 07/10/2025 [place] [id number] Ultrasound Report Signed Patient: Tristan Timmons#: [id number] 643 : 1955cct:[id number] Age/Sex: 70 / FADM Date: 07/10/25 Loc: HO.US Attending Dr: Paulina Briggs MD Ordering Physician: Paulina Briggs MD Date of Service: 07/10/25 Procedure(s): US abdomen comp w elastography Accession Number(s): [id number] cc: Paulina Briggs MD Reason for Exam: transaminitis, MASLD EXAMINATION: US ABDOMEN COMPLETE WITH LIVER ELASTOGRAPHY HISTORY: transaminitis, MASLD TECHNIQUE: Real-time grayscale ultrasound imaging of the abdomen was performed and images were reviewed. COMPARISON: Comparison is made with the prior examination dated 06/17/2024. FINDINGS: Liver: The right lobe of the liver measures 11.6 cm in size. The left lobe of the liver measures 9.7 cm in size. The liver demonstrates increased echotexture, consistent with steatosis. No focal mass or intrahepatic biliary ductal dilatation is identified. There is normal hepatopedal flow in the portal vein. Ultrasound elastography of the liver was performed with 10 separate measurements of the liver parenchyma with the patient in the supine position. Measurements were obtained approximately 2 cm below Adelia's capsule and perpendicular to the capsule. The median shear wave velocity is 1.71 m/s (previously 1.50 m/s). The interquartile range/median (IQR/median) is 0.04. Gallbladder and biliary tree: The gallbladder is surgically absent. The common bile duct measures 8 mm diameter. Kidneys: The right kidney measures 9.1 cm in length. The left kidney measures 9.4 cm in length. The kidneys are unremarkable, without evidence of masses, hydronephrosis, or calculi. Pancreas: The pancreatic head, neck, and body are unremarkable. The pancreatic tail is obscured by bowel gas. Spleen: The spleen is normal in size and contour, measuring 7.8 cm in length. Abdominal aorta and inferior vena cava: The visualized portions of the abdominal aorta and inferior vena cava are normal in caliber. There is no free fluid in the abdomen. US/US abdomen comp w elastography IMPRESSION: Hepatic steatosis. The median shear wave velocity in the liver is 1.71 m/s, corresponding to a median liver stiffness of 8.97 kPa. The IQR/median value is 0.04. This is indicative of a quality data set. Findings are indicative of a high elastography value suggestive of compensated advanced chronic liver disease. REFERENCE: Society of Radiologists in Ultrasound Liver Stiffness Thresholds (2020): LIVER STIFFNESS THRESHOLDS: *Shear wave velocity less than 1.3 m/s (Liver Stiffness equal or less than 5 kPa): High probability of being normal. *Shear wave velocity less than 1.7 m/s (Liver Stiffness less than 9 kPa): In the absence of other known clinical signs, rules out compensated advanced chronic liver disease. *Shear wave velocity between 1.7-2.1 m/s (Liver Stiffness 9-13 kPa): Suggestive of compensated advanced chronic liver disease but need further test for confirmation. *Shear wave velocity between 2.1-2.4 m/s (Liver Stiffness 13-17 kPa): Rules in compensated advanced chronic liver disease. *Shear wave velocity greater than 2.4 m/s (Liver Stiffness over 17 kPa): Suggestive of clinically significant portal hypertension. QUALITY OF DATA SET: *IQR/Median value equal or less than 0.15 implies a quality data set. *IQR/Median value over 0.15 implies a poor quality data set. SIGNIFICANT CHANGE FROM PRIOR EXAM: Significant change if liver stiffness measurement is 10% or greater from prior exam. OTHER CONSIDERATIONS: The stage of liver fibrosis may be overestimated in the setting of acute hepatitis, liver inflammation, elevated liver function tests, hepatic vascular congestion, obstructive cholestasis, non-fasting state, and infiltrative diseases such as amyloidosis and lymphoma. In some patients with NAFLD, the liver stiffness thresholds for compensated advanced chronic liver disease may be lower. In causes other than viral hepatitis and NAFLD, liver stiffness thresholds are not well established. Electronically signed by: Alexandro Harley MD 07/10/2025 09:43 AM EDT Dictated By: Alexandro Harley MD Signed By: <Electronically signed by Alexandro Harley MD in [place]> 07/10/25942 DD/ 7 TD/TT: 07/10/25923 Employee Counselor: us Paulina Briggs MD IMG US PROCEDURES Edited Result - Final documented in this encounter Visit Diagnoses Diagnosis Transaminitis- Primary Nonspecific elevation of levels of transaminase or lactic acid dehydrogenase (LDH) Metabolic dysfunction-associated steatotic liver disease (MASLD) Transaminitis- Primary Nonspecific elevation of levels of transaminase or lactic acid dehydrogenase (LDH) Metabolic dysfunction-associated steatotic liver disease (MASLD) Hypothyroidism, unspecified type Essential hypertension Unspecified essential hypertension documented in this encounter Additional Health Concerns Assessment Noted Time PHQ-9 Depression Total Score: 0 12/20/19 25 2:05 PM EST documented as of this encounter Care Teams Hull Inspector Relationship Specialty Start Date End Date Paulina Briggs MD [address] [place] [id number] PCP - General Family Medicine 12/28/23 documented as of this encounter
--- OUTSIDE RECORDS SUMMARY | 2025-07-10 10:14 | XMS_ITS | Clinical Summary ---
Author Organization [employer] Address [address] [place] [address] 7[address] [place] [address] Care Team Providers Care Neurodiagnostic Tech Name Role Phone Paulina Briggs MD Primary Care Provider [phone] Allergies Active Allergy Reactions Criticality Noted Date [...] BY MOUTH EVERY DAY 90 tablet 1 5 Active levothyroxine (Synthroid, Levoxyl) 25 MCG tabletIndication s:Hypothyroidism , unspecified type TAKE 1 TABLET BY MOUTH EVERY MORNING 90 tablet 1 5 Active atorvastatin (Lipitor) 40 MG tablet TAKE 1 TABLET BY MOUTH EVERY DAY AT BEDTIME 90 tablet 1 5 Active lisinopril (Prinivil) 20 MG tablet Take 1 tablet (20 mg) by mouth Once per day. 30 tablet 11 5 02/12/20 26 Active Active Problems Problem Noted Date Diagnosed Date Metabolic dysfunction-associ ated steatotic liver disease (MASLD) 12/25/2024 Assessment & Plan (03/20/2025 1:00 PM EDT): -possible MetALD -last US in May 2024, fatty liver, compensated chronic liver disease -FIB4 index 2.56 -avoid hepatotoxic drugs -lifestyle modifications Assessment & Plan (12/25/2024 12:00 PM EDT): -possible MetALD -last US in May 2024, fatty liver, compensated chronic liver disease -FIB4 index 2.56 -avoid hepatotoxic drugs -lifestyle modifications Transaminitis 12/14/2023 Assessment & Plan (03/31/2025 4:42 PM EDT): - MASLD / MetALD - last US in May 2024 - FIB4 index 2.56 - continue working on lifestyle modification - discussed about reducing alcohol consumption Assessment & Plan (12/25/2024 11:56 AM EDT): - recheck lab - discussed about reducing alcohol consumption - last US in May 2024 Assessment & Plan (12/28/2023 9:55 AM EDT): - recheck lab - patient rinks 2-3 cans of beer daily; continue reassessing amount and encourage sensible intake - consider US evaluation Hypothyroidism 04/05/2015 Assessment & Plan (03/31/2025 4:40 PM EDT): - current replacement: levothyroxine 50 mcg daily - last TSH in December 2024 was therapeutic - continue current replacement and check lab periodically Assessment & Plan (12/25/2024 11:55 AM EDT): - current replacement: levothyroxine 50 mcg daily - last TSH in Nov 2023 was therapeutic - check thyroid peroxidase antibody Assessment & Plan (12/28/2023 9:49 AM EDT): - current replacement: levothyroxine 50 mcg daily - last TSH > 1 year ago - check lab - check thyroid peroxidase antibody Dyslipidemia 04/05/2015 Assessment & Plan (03/31/2025 4:39 PM EDT): - current medication: atorvastatin 40 mg at bedtime - last lipid profile 12/19/24 - recheck lab - continue working on lifestyle modifications Assessment & Plan (12/19/2024 1:51 PM EST): [...] Vitamin D deficiency 04/05/2015 Assessment & Plan (03/20/2025 1:00 PM EDT): - check vitamin D level Assessment & Plan (12/19/2024 1:51 PM EST): - check vitamin D level Assessment & Plan (12/28/2023 9:50 AM EDT): - check vitamin D level Essential hypertension 04/05/2015 Assessment & Plan (03/31/2025 4:45 PM EDT): -Goal BP < 150/90 per JNC-8 and < 130/80 per ACC/AHA guideline (Treatment threshold >= 140/90) -BP not at goal today; home BP is excellent -Continue working on lifestyle modifications -Recommended self-monitoring BP. -Continue current medications: lisinopril 20 mg daily - Recommended to reduce alcohol consumption Assessment & Plan (12/25/2024 11:53 AM EDT): -Goal BP < 150/90 per JNC-8 and < 130/80 per ACC/AHA guideline (Treatment threshold >= 140/90) -BP not at goal today -Continue working on lifestyle modifications -Recommended self-monitoring BP. -Continue current medications: lisinopril 10 mg daily -Follow up in 3 weeks for BP check. If her home BP is persistently above 135 or office BP is > 150 (and home BP is often > 130), will increase lisinopril to 20 mg daily. Assessment & Plan (12/28/2023 9:48 AM EDT): [...] Encounters Date Type Department Care Team Description 07/07/2025 Telephone [facility] [address] [place] [phone] Jessy Dillon MA 07/03/2025 Travel 05/31/2025 Results Follow-Up [facility] [address] [place] [phone] Paulina Briggs MD TSH with Reflex to Free T4, Comprehensive Metabolic Panel, Lipid Panel with Reflex to Direct LDL, CBC auto differential 05/30/2025 Orders Only [address] [address] Paulina Briggs MD Hypothyroidism, unspecified type (Primary Dx); Essential hypertension; Metabolic dysfunction-associated steatotic liver disease (MASLD); Dyslipidemia 05/15/2025 Orders Only [address] [phone] Paulina Briggs MD Transaminitis (Primary Dx); Metabolic dysfunction-associated steatotic liver disease (MASLD) 05/04/[address] [address] Sloane Pérez MA june recall from Last 3 Months Immunizations Immunization Administration Dates Next Due Influenza injectable quadriv [...] Sign Reading Time Taken Comments Blood Pressure 160/80 03/20/2025 1:23 PM EDT Pulse 80 03/20/2025 1:08 PM EDT Temperature 36.7 C (98.1 F) 03/20/2025 1:08 PM EDT Respiratory Rate 16 03/20/2025 1:08 PM EDT Oxygen Saturation 99% 02/10/2025 10:44 AM EDT Inhaled Oxygen Concentration - - Weight 59.7 kg (131 lb 9.6 oz) 03/20/2025 1:08 P M EDT Height 154.9 cm (5' 1 ) 03/20/2025 1:08 PM EDT Body Mass Index 24.87 03/20/2025 1:08 PM EDT Plan of Treatment Upcoming Encounters Date Type Department Care Team (Late st Contact Info) Description 07/10/2025 11:30 AM EDT Office Visit [facility] [address] [place] [address] Paulina Briggs MD [address] [place] [address] 10/27/2025 10:30 AM EST Office Visit [facility] [address] [place] [address] Nina Gutiérrez, OD [address] [place] [address] Health Maintenance Due Date Last Done Comments CT Colonography 1955 FIT DNA/Cologuard 1955 FIT 1955 FOBT 1955 Sigmoidoscopy 1955 Hepatitis A Vaccines (1 of 2 - Risk 2-dose series) 1976 Zoster Vaccines (1 of 2) 2007 RSV Patients and Patients Aged 60 years or older (1 - Risk 60-74 years 1-dose series) 2017 Influenza Vaccine (#1) 2025 , 07/08/2019, 08/26/2016, Additional history exists COVID-19 Vaccine ( season) 2025 12/19/2024, 07/24/2023, 08/06/2022, Additional history exists Alcohol/Substance Use Screening 12/19/2025 12/19/2024 Depression Screening 12/19/2025 12/19/2024, 12/20/19 SDOH Screening 12/19/2025 12/19/2024 Mammogram 01/13/2026 01/13/2025, 12/18, 01/06/2023, Additional history exists Tobacco Screening 03/31/2026 03/31/2025 DTaP/Tdap/Td Vaccines (2 - Td or Tdap) 02/09/2028 02/08/2018 Lipid Panel 05/30/2030 05/30/2025, 0312/2024, 12/14/2023, Additional history exists Colonoscopy 03/01/2034 03/01/2024, 10/08/2017 Colorectal Cancer Screening 03/01/2034 Cervical Cancer Screening Discontinued HPV/Cotest Discontinued 12/09/2016 Pneumococcal Vaccine: 50+ Years Completed 12/14/2023 HIB Vaccines Aged Out No longer eligi ble based on patient's age to complete this topic HPV Vaccines Aged Out No longer eligi ble based on patient's age to complete this topic Hepatitis B Vaccines Discontinued Hepatitis C Screening Discontinued IPV Vaccines Aged Out No longer eligi ble based on patient's age to complete this topic Meningococcal B Vaccine Aged Out No l onger eligible based on patient's age to complete [...] Metabolic dysfunction-associa ashley steatotic liver disease (MASLD) CBC WITH AUTO DIFFERENTIAL Routine 05/30/2025 2:33 PM EDT Metabolic dysfunction-associa ashley steatotic liver disease (MASLD) LIPID PANEL WITH REFLEX TO DIRECT LDL Routine 05/30/2025 2:33 PM EDT Dyslipidemia COMPREHENSIVE METABOLIC PANEL Routine 05/30/2025 2:33 PM EDT Metabolic dysfunction-associa ashley steatotic liver disease (MASLD) TSH W/REFLEX TO FT4 Routine 05/30/2025 2 :33 PM EDT Hypothyroidism, unspecified type BI MAMMOGRAM SCREENING TOMOSYNTHESIS BILATERAL Routine 01/13/2025 9:00 AM EDT HM COLONOSCOPY Routine 03/01/2024 9:07 AM EDT ZZZ HISTORICAL HPV MRNA E6/E7 Routine 12/09/2016 10:00 AM EST from Last 3 Months or Most Recently Relevant to Health Maintenance Results * US Abdomen Comp w elastography (07/10/2025 9:08 AM EDT) Anatomical Region Laterality Modality Abdomen Ultrasound 07/10/2025 9:08 AM EDT Narrative 07/10/2025 9:46 AM EDT [place] [address] Ultrasound Report Signed Patient: Nataliya Timmons MR#: [id number] [id number] : 1955 Acct:[id number] Age/Sex: 70 / F ADM Date: 07/10/25 Loc: HO.US Attending Dr: Paulina Briggs MD Ordering Physician: Paulina Briggs MD Date of Service: 07/10/25 Procedure(s): US abdomen comp w elastography Accession Number(s): [id number] cc: Paulina Briggs MD Reason for Exam: [...] Alexandro Harley MD 07/10/2025 09:43 AM EDT RP Dictated By: Alexandro Harley MD Signed By: <Electronically signed by Alexandro Harley MD in OV> 07/10/25942 DD/ 7 TD/TT: 07/10/25923 Long Distance Operator: Procedure Note Donotuseinterpreter, Image - 07/10/2025 [place] [address] Ultrasound Report Signed Patient: Tristan Timmons#: [id number] 643 : 1955cct:[id number] Age/Sex: 70 / FADM Date: 07/10/25 Loc: HO.US Attending Dr: Paulina Briggs MD Ordering Physician: Paulina Briggs MD Date of Service: 07/10/25 Procedure(s): US abdomen comp w elastography Accession Number(s): [id number] cc: Paulina Briggs MD Reason for Exam: [...] Alexandro Harley MD 07/10/2025 09:43 AM EDT RP Dictated By: Alexandro Harley MD Signed By: <Electronically signed by Alexandro Harley MD in OV> 07/10/25942 DD/ 7 TD/TT: 07/10/25923 Long Distance Operator: us Paulina Briggs MD IMG US PROCEDURES Edited Result - Final * TSH with Reflex to Free T4 (05/30/2025 2:33 PM EDT) TSH reflex Free T4 2.50 0.32 - 4.0 uIU/mL [facility] Blood 05/30/2025 2:33 PM EDT 05/30/2025 5:40 PM EDT us Paulian Briggs MD LAB BLOOD ORDERABLES Final Resul t [facility] [address] [place] [phone] * Lipid Panel with Reflex to Direct LDL (05/30/2025 2:33 PM EDT) Triglycerides 100 <150 mg/dL [facility] Comment:Desirable Triglyceri de: less than 150 mg/dLBorderline High Triglyceride 150-199 mg/dLHigh Triglyceride: 200-499 mg/dLVery High Triglyceride: greater than or equal to 5OO mg/dL Cholesterol 158 <200 mg/dL [facility] Comment:Desirable Cholestero l: less than 200 mg/dLBorderline High Cholesterol: 200-239 mg/dLHigh Cholesterol: greater than 239 mg/dL LDL Cholesterol Calculated 68 <100 mg/dL [facility] Comment:Desirable LDL: less than 100 mg/dLNear Optimal/Above Optimal LDL: 110- 129 mg/dLBorderline High LDL: 130-159 mg/dLHigh LDL: 160-189 mg/dLVery High LDL: greater than or equal to 190 mg/dL HDL Cholesterol 70 >40 mg/dL [facility] Comment:Desirable HDL: great er than 40 mg/dL Note: This HDL assay may give artificially low results in patients with liver disease. Blood 05/30/2025 2:33 PM EDT 05/30/2025 5:40 PM EDT us Paulina Briggs MD LAB BLOOD ORDERABLES Final Resul t [facility] [address] [place] [address] [phone] * (ABNORMAL) CBC auto differential (05/30/2025 2:33 PM EDT) White Blood Count 7.3 4.8 - 10.8 X10*3/uL [facility] Red Blood Count 3.82(L) 4.20 - 5.50 X10*6/uL [facility] Hemoglobin 12.7 12.0 - 16.0 g/dl [facility] Hematocrit 38.2 37.0 - 47.0 % [facility] Mean Corpuscular Volume 100.0(H) 80.0 - 98.0 fL [facility] Mean Corpuscular Hemoglobin 33.2(H) 27.0 - 33.0 pg [facility] Mean Corpuscular HGB Conc 33.2 31.0 - 35.0 g/dl [facility] Red Cell Distribution Width 12.8 11.0 - 16.0 % [facility] Platelet Count 233 160 - 400 X10*3/uL [facility] Mean Platelet Volume 10.0 9.4 - 12.3 fL [facility] Neutrophils Percent Auto 67.2 45 - 73 % [facility] Imm Gran Pct Auto 0.3 0.0 - 0.4 % [facility] Lymphocytes Percent Auto 23.6 20 - 40 % [facility] Monocytes Percent Auto 7.6 2 - 11 % [facility] Eosinophils Percent Auto 0.7 0 - 4 % [facility] Basophils Percent Auto 0.6 0 - 2 % [facility] NRBC Pct Auto 0.0 0.0 - 0.2 /100WBC [facility] Neutrophils Absolute Auto 4.9 2.0 - 8.3 x10*3/uL [facility] Imm Gran Abs Auto 0.02 0.00 - 0.03 X10*3/uL [facility] Lymphocytes Absolute Auto 1.7 1.2 - 4.9 X10*3/uL [facility] Monocytes Absolute Auto 0.6 0.1 - 1.2 X10*3/uL [facility] Eosinophils Absolute Auto 0.1 0.0 - 0.4 X10*3/uL [facility] Basophils Absolute Auto 0.0 0.0 - 0.2 X10*3/uL [facility] NRBC Abs Auto 0.000 0.0 - 0.012 X10*3/uL [facility] Blood Venous blood specimen / Unknown 05/30/2025 2:33 PM EDT 05/30/2025 5:45 PM EDT us Paulina Briggs MD LAB BLOOD ORDERABLES Final Resul t [facility] [address] [place] [address] [phone] * (ABNORMAL) Comprehensive Metabolic Panel (05/30/2025 2:33 PM EDT) Sodium 144 135 - 145 mmol/L [facility] Potassium 3.7 3.3 - 5.1 mmol/L [facility] Chloride 106 96 - 108 mmol/L [facility] Carbon Dioxide 28 22 - 29 mmol/L [facility] Anion Gap 14 12 - 20 [facility] Urea Nitrogen (BUN) 11 9 - 16 mg/dL [facility] Creatinine, Serum 0.85 0.5 - 1.4 mg/dL [facility] Estimated Glomerular Filt Rate >60 [facility] Comment:Chronic Kidney Disea se: Estimated GFR < 60 mL/min/1.37e6Eiiqij Kidney Disease: Estimated GFR < 15 mL/min/1.73m2 Glucose 97 60 - 115 mg/dL [facility] Calcium 9.9 8.4 - 10.2 mg/dL [facility] Bilirubin, Total 1.0 0.0 - 1.0 mg/dL [facility] Aspartate Amino Transferase 35(H) 5 - 31 U/L [facility] Alanine Aminotransferase 28 0 - 31 U/L [facility] Total Protein 7.5 6.5 - 8.0 g/dL [facility] Albumin Level 4.7 3.5 - 5.0 g/dL [facility] Alkaline Phosphatase 80 39 - 117 U/L [facility] Blood Venous blood specimen / Unknown 05/30/2025 2:33 PM EDT 05/30/2025 5:40 PM EDT us Paulina Briggs MD LAB BLOOD ORDERABLES Final Resul t [facility] [address] [place] [address] [phone] * BI Mammogram Screening Tomosynthesis Bilateral (01/13/2025 9:00 AM EDT) Anatomical Region Laterality Modality Breast Bilateral Mammography 01/13/2025 9:00 AM EDT Narrative 01/21/2025 2:43 PM EDT [facility] [address] [place] [address] Mammography Report Signed Patient: Nataliya Timmons MR#: [id number] 643 : 1955 Acct:[id number] Age/Sex: 69 / F ADM Date: 01/13/25 Loc: MAMMO Attending Dr: Cintia Chambers MD Ordering Physician: Cintia Chambers MD Results: 1Negati ve Date of Service: 01/13/25 Follow Up: 1 Year From Orig ina Mammogram Procedure(s): MM tomosynthesis screening BI Accession Number(s): [id number] cc: Cintia Chambers MD; Paulina Briggs MD EXAMINATION: MM SCREENING DIGITAL BREAST TOMOSYNTHESIS, BILATERAL CLINICAL INFORMATION: Screening. Asymptomatic. COMPARISON: Mammography: Comparison is made with available priors TECHNIQUE: Digital breast mammography with tomosynthesis is performed in both the craniocaudal and mediolateral oblique views along with computer-aided detection (CAD). FINDINGS: The breasts are heterogeneously dense, which may obscure small masses (ACR BI-RADS breast composition Category c). There are no significant masses, abnormal calcifications, or other abnormalities. MM/MM tomosynthesis screening BI IMPRESSION: No mammographic evidence of malignancy. ASSESSMENT: BI-RADS BI-RADS 1 - Negative RECOMMENDATION: Routine annual mammography screening. 1 year F/U This examination should not preclude the clinical evaluation of a suspicious palpable abnormality. This patient's information was entered into a reminder system with a target due date for their next mammogram. Electronically signed by: Joann Cortez DO 01/21/2025 02:39 PM EDT Dictated By: Joann Cortez DO Signed By: <Electronically signed by Joann Cortez DO in OV> 01/21/25 1439 DD/ 0900 TD/TT: 01/13/25 0910 Long Distance Operator: Procedure Note Donotuseinterpreter, Image - 01/21/2025 [facility] [address] [place] [address] Dr. Pozo, [place] [address] Mammography Report Signed Patient: Tristan Timmons#: [id number] [id number] : 1955cct:[id number] Age/Sex: 69 / FADM Date: 01/13/25 Loc: HO.MAMMO Attending Dr: Cintia Chambers MD Ordering Physician: Cintia Chambers MDResults: 1Negati ve Date of Service: 01/13/25Follow Up: 1 Year From Orig inal Mammogram Procedure(s): MM tomosynthesis screening BI Accession Number(s): [id number] cc: Cintia Chambers MD; Paulina Briggs MD EXAMINATION: MM SCREENING DIGITAL BREAST TOMOSYNTHESIS, BILATERAL CLINICAL INFORMATION: Screening. Asymptomatic. COMPARISON: Mammography: Comparison is made with available priors TECHNIQUE: Digital breast mammography with tomosynthesis is performed in both the craniocaudal and mediolateral oblique views along with computer-aided detection (CAD). FINDINGS: The breasts are heterogeneously dense, which may obscure small masses (ACR BI-RADS breast composition Category c). There are no significant masses, abnormal calcifications, or other abnormalities. MM/MM tomosynthesis screening BI IMPRESSION: No mammographic evidence of malignancy. ASSESSMENT: BI-RADS BI-RADS 1 - Negative RECOMMENDATION: Routine annual mammography screening. 1 year F/U This examination should not preclude the clinical evaluation of a suspicious palpable abnormality. This patient's information was entered into a reminder system with a target due date for their next mammogram. Electronically signed by: Joann Cortez DO 01/21/2025 02:39 PM EDT Dictated By: Joann Cortez DO Signed By: <Electronically signed by Joann Cortez DO in OV> 01/21/25 1439 DD/ 0900 TD/TT: 01/13/25 0910 Long Distance Operator: Cintia Chambers MD IMG BI PROCEDURES Edited Result - Final * Hm Colonoscopy (03/01/2024 9:07 AM EDT) Historical Provider HEALTH MAINTENANCE Final Result * HPV mRNA E6/E7 (12/09/2016 10:00 AM EST) HPV mRNA E6/E7 Not Detected NOT DETECTED [facility] Comment: This test was performed using the APTIMA(R) HPV Assay ([employer] This assay detects E6/E7 viral messenger RNA (mRNA) from 14 high-risk HPV types (16,18,31,33,35,39,45,51, 52,56,58,59,66,68). For additional information please refer to: http://Brozengo.Easy Tempo/faq/YJX218n1 (This link is being provided for informational/ educational purposes only.) Test Performed by [facility] [place], [facility], [address] [place] [address] Van Linton M.D., Ph.D., Director of Laboratories , [place] [id number] Please note: Effective 06/30/2016, HPV testing will be performed using [employer]'s APTIMA test which targets mRNA. Detecting mRNA instead of DNA, as in older methods, offers significant improvements in specificity. 12/09/2016 10:0 0 AM EST Maryuri Johns CNM HISTORICAL/NON ORDERABLE LABS Final Result [facility] [address] from Last 3 Months or Most Recently Relevant to Health Maintenance Insurance MEDICARE [facility] [place] [place] Care Teams Neurodiagnostic Tech Relationship Specialty Start Date End Date Paulina Briggs MD [address] [place] [phone] PCP - General Family Medicine 12/28/23
== END 2025-07-10 08:53 | disposition home or self-care (01) ==
LOC: HO.US 08:52
PROVIDERS: PCP Family Medicine; Visit Provider Family Medicine
DX: R74.01 Elevation of levels of liver transaminase levels (principal); K76.0 Fatty (change of) liver, not elsewhere classified
CPT/HCPCS: 76700; 76981

== ENCOUNTER → 2025-07-10 08:53 | Outpatient (BNV) | payer MEDICARE, SELFPAY | PROVIDERS: PCP Family Medicine; Visit Provider Radiology Diagnostic Radiology | DX: K76.0 Fatty (change of) liver, not elsewhere classified (principal) | CPT/HCPCS: 76700 ==